=== PATIENT | female | born 1935 | race Caucasian/White ===

== ENCOUNTER 2018-08-19 06:01 | Emergency (ER) | payer OTHER ==
[2018-08-19 06:42] LABS: Absolute Monocytes 0.6 K/uL (0.1-1.3); Absolute Neutrophil 3.3 K/uL (1.8-8.0); Eosinophils % 7.2 % (0-4.4); Hematocrit 41.5 % (36.0-45.0); Lymphocytes % 31.3 % (15.3-44.8); MCH 30.3 pg (27.0-35.0); MCV 88.7 fL (80-100); MPV 9.4 fL (7.6-11.3); Monocytes % 8.8 % (3.3-12.3); RBC Red Blood Cell Count 4.68 M/uL (3.86-4.86)
[2018-08-19] MEDS ORDERED: HYDRALAZINE HCL 20 MG/ML VIAL ONE ×2 (06:47→08:57)
[2018-08-19 06:48] LABS: Potassium 4.6 mmol/L (3.5-5.1)
[2018-08-19 07:11] LABS: Protime INR 0.95
--- NOTE | 2018-08-19 07:26 | EDPHYS ---
Physician Documentation [facility] Name: Gaby Burnett Age: 82 yrs Sex: Female : 1935 Arrival Date: 08/19/2018 Time: 06:02 Bed 4 Private MD: ED Physician Juan Jose Tan HPI: 08/19 06:16 This 82 yrs old Female presents to ER via Wheelchair with complaints of S/S tw4 of Possible Stroke. 06:16 The patient's problem is reported as paresthesias, in right upper extremity, dysphasia, tw4 slurred speech. Onset: The symptoms/episode began/occurred just prior to arrival. Duration: This was a single incident. Context: symptoms became apparent upon waking. The symptoms are alleviated by nothing. The symptoms are aggravated by nothing. Associated signs and symptoms: The patient has no apparent associated signs or symptoms. Severity of symptoms: At their worst the symptoms were mild in the emergency department the symptoms are unchanged. Patient's baseline: Neuro: alert and fully oriented, Motor: no deficits. The patient has not experienced similar symptoms in the past. The patient has not recently seen a physician. Historical: - Allergies: 06:36 PENICILLINS; lp1 - Home Meds: 06:36 levothyroxine oral [Active]; lp1 - PMHx: 06:14 Hypertension; Hypothyroidism; tl2 - PSHx: 06:36 Cholecystectomy; Hysterectomy; tumor removal; Appendectomy; lp1 - Immunization history:: Adult Immunizations up to date. - Ebola Screening: : No symptoms or risks identified at this time. - Social history:: Smoking status: Patient/guardian denies using tobacco. ROS: 06:16 Constitutional: Negative for fever, chills, and weight loss, Cardiovascular: Negative tw4 for chest pain, palpitations, and edema, Respiratory: Negative for shortness of breath, cough, wheezing, and pleuritic chest pain, Abdomen/GI: Negative for abdominal pain, nausea, vomiting, diarrhea, and constipation, Back: Negative for injury and pain, MS/Extremity: Negative for injury and deformity, Skin: Negative for injury, rash, and discoloration. 06:16 Neuro: Positive for speech changes, weakness. Exam: 06:16 Constitutional: This is a well developed, well nourished patient who is awake, alert, tw4 and in no acute distress. Head/Face: Normocephalic, atraumatic. Chest/axilla: Normal chest wall appearance and motion. Nontender with no deformity. No lesions are appreciated. Cardiovascular: Regular rate and rhythm with a normal S1 and S2. No gallops, murmurs, or rubs. Normal PMI, no JVD. No pulse deficits. Respiratory: Lungs have equal breath sounds bilaterally, clear to auscultation and percussion. No rales, rhonchi or wheezes noted. No increased work of breathing, no retractions or nasal flaring. Abdomen/GI: Soft, non-tender, with normal bowel sounds. No distension or tympany. No guarding or rebound. No evidence of tenderness throughout. Back: No spinal tenderness. No costovertebral tenderness. Full range of motion. 06:32 Skin: Warm, dry with normal turgor. Normal color with no rashes, no lesions, and no tw4 evidence of cellulitis. MS/ Extremity: Pulses equal, no cyanosis. Neurovascular intact. Full, normal range of motion. Neuro: Awake and alert, GCS 15, oriented to person, place, time, and situation. Cranial nerves II-XII grossly intact. Motor strength 5/5 in all extremities. Sensory grossly intact. Cerebellar exam normal. Normal gait. 06:32 ECG was reviewed by the Attending Physician. 06:33 Radiologist reports: no acute changes. tw4 Vital Signs: 06:11 BP 215 / 83; Pulse 72; Resp 18; Temp 98.9(O); Pulse Ox 100% on R/A; Weight 77.11 kg; lp1 Height 5 ft. 5 in. (165.10 cm); Pain 0/10; 06:44 BP 205 / 83; Pulse 68; Resp 14; Pulse Ox 98% on R/A; lp1 07:04 BP 180 / 75; Pulse 75; Resp 20; Pulse Ox 97% on R/A; rr5 08:00 BP 186 / 87; Pulse 65; Resp 18; Pulse Ox 100% on R/A; sv 08:50 BP 210 / 82; Pulse 68; Resp 18; Pulse Ox 99% ; sv 06:11 Body Mass Index 28.29 (77.11 kg, 165.10 cm) lp1 NIH Stroke Scale Scores: 06:15 NIHSS Score: 0 lp1 06:16 NIHSS Score: 0 tw4 Sutton Coma Score: 06:16 Eye Response: spontaneous(4). Verbal Response: oriented(5). Motor Response: obeys tw4 commands(6). Total: 15. MDM: 06:08 Patient medically screened. tw4 06:16 Differential diagnosis: CVA, TIA, metabolic disorder, drug effects. Data reviewed: tw4 vital signs, nurses notes. Data interpreted: pharmacy cashier: rhythm is normal sinus rhythm, Pulse oximetry: Interpretation: normal. Counseling: I had a detailed discussion with the patient and/or guardian regarding: the historical points, exam findings, and any diagnostic results supporting the discharge/admit diagnosis. 07:26 ED course: The patient has responded well to BP medication (Hydralazine). Her s/s kdr continue to be minimal. On re-evaluation, her stroke scale continues to be 0/1. Family reports that she is at baseline in terms of speech and mental status. Her only c/o presently is mild paresthesia to her right upper extremity from the elbow down. Objectively, pinprick is felt appropriately in both upper and lower extremities. No current strength defecits. ED course: Dr. Harden/T accepted to [facility]. 08/19 06:07 Order name: Basic Metabolic Panel; Complete Time: 06:58 08/19 06:07 Order name: CBC with Diff; Complete Time: 06:58 08/19 06:07 Order name: Protime (+inr) 08/19 06:07 Order name: Ptt, Activated 08/19 06:07 Order name: CT Stroke Brain w/o Contrast 08/19 06:07 Order name: Stroke CXR 1 View 08/19 06:07 Order name: EKG; Complete Time: 06:07 08/19 06:07 Order name: Accucheck; Complete Time: 06:19 08/19 06:07 Order name: Cardiac monitoring; Complete Time: 06:39 08/19 06:07 Order name: EKG - Nurse/Tech; Complete Time: 06:39 08/19 06:07 Order name: IV Saline Lock; Complete Time: 06:40 08/19 06:07 Order name: Labs collected and sent; Complete Time: 06:40 08/19 06:07 Order name: NPO; Complete Time: 06:21 08/19 06:07 Order name: O2 Per Protocol; Complete Time: 06:21 08/19 06:07 Order name: O2 Sat Monitoring; Complete Time: 06:08/19 06:07 Order name: Stroke Swallow Screen; Complete Time: 06:40 bb EC:32 Rate is 69 beats/min. Rhythm is regular. QRS Alverda is Normal. IA interval is normal. QRS tw4 interval is normal. QT interval is normal. No Q waves. T waves are Inverted in leads V4, V5, V6. T waves are Flattened in lead III. No ST changes noted. Clinical impression: Abnormal EKG without significant change. Interpreted by me. Reviewed by me. Administered Medications: 06:47 Drug: hydrALAZINE 10 mg Route: IV; Rate: bolus; Site: left forearm; lp1 08:52 Drug: hydrALAZINE 10 mg Route: IV; Rate: calculated rate; Site: left forearm; sv 08:55 Follow up: Response: No adverse reaction; IV Status: Completed infusion; IV Intake: sv 0.5ml Point of Care Testing: Blood Glucose: 06:11 Blood Glucose: 97 mg/dL; lp1 Ranges: Critical Glucose Levels:Adult <50 mg/dl or >400 mg/dl <40 mg/dl or >180 mg/dl Disposition: 08/19/18 07:[address] [facility]. Diagnosis are Slurred speech, Right upper extremity weak/numbness. - Reason for transfer: Higher level of care. - Accepting physician is [facility]. - Condition is Fair. - Problem is new. - Symptoms have improved. NIH Stroke Scale - NIH Stroke Score Date: 08/19/2018 Time: 06:15 Total Score = 0 1a. Level of Consciousness (LOC) - 0(Alert) 1b. Level of Consciousness (LOC) (Year \T\ Age) - 0(Both) 1c. LOC Commands (Open \T\ Closes Eyes/Home Delivery Driver) - 0(Both) 2. Best Gaze (Lateral Gaze Paresis) - 0(Normal) 3. Visual Field Loss - 0(No visual loss) 4. Facial Palsy - 0(Normal) 5a. Left Arm: Motor (10-second hold) - 0(No drift) 5b. Right Arm: Motor (10-second hold) - 0(No drift) 6a. Left Leg: Motor (5-second hold - always test supine) - 0(No drift) 6b. Right Leg: Motor (5-second hold - always test supine) - 0(No drift) 7. Limb Ataxia (finger/nose \T\ heel/maravilla - test with eyes open) - 0(Absent) 8. Sensory Loss (pinprick arms/legs/face) - 0(Normal) 9. Best Language: Aphasia (description/naming/reading) - 0(No aphasia) 10. Dysarthria (speech clarity - read or repeat words) - 0(Normal) 11. Extinction and Inattention (visual/tactile/auditory/spatial/personal) - 0(No abnormality) Initials: lp1 NIH Stroke Scale - NIH Stroke Score Date: 08/19/2018 Time: 06:16 Total Score = 0 1a. Level of Consciousness (LOC) - 0(Alert) 1b. Level of Consciousness (LOC) (Year \T\ Age) - 0(Both) 1c. LOC Commands (Open \T\ Closes Eyes/Home Delivery Driver) - 0(Both) 2. Best Gaze (Lateral Gaze Paresis) - 0(Normal) 3. Visual Field Loss - 0(No visual loss) 4. Facial Palsy - 0(Normal) 5a. Left Arm: Motor (10-second hold) - 0(No drift) 5b. Right Arm: Motor (10-second hold) - 0(No drift) 6a. Left Leg: Motor (5-second hold - always test supine) - 0(No drift) 6b. Right Leg: Motor (5-second hold - always test supine) - 0(No drift) 7. Limb Ataxia (finger/nose \T\ heel/maravilla - test with eyes open) - 0(Absent) 8. Sensory Loss (pinprick arms/legs/face) - 0(Normal) 9. Best Language: Aphasia (description/naming/reading) - 0(No aphasia) 10. Dysarthria (speech clarity - read or repeat words) - 0(Normal) 11. Extinction and Inattention (visual/tactile/auditory/spatial/personal) - 0(No abnormality) Initials: tw4 Signatures: Dispatcher [employer] EDYnes Reyna RN RN Juan Jose Santos MD MD kdr Reba Hansen RN RN bb Ynes Bates RN RN lp1 Gail Zeng RN RN tl2 Marek Marlow, MD SINGLETARY tw4 Corrections: (The following items were deleted from the chart) 08:55 07:25 08/19/2018 07:[address] [facility]. sv Diagnosis is Slurred speech; Right upper extremity weak/numbness. Reason for transfer: Higher level of care. Accepting physician is [facility]. Condition is Fair. Problem is new. Symptoms have improved. kdr
--- NOTE | 2018-08-19 07:26 | ER ---
Nurse's Notes [facility] Name: Gaby Burnett Age: 82 yrs Sex: Female : 1935 Arrival Date: 08/19/2018 Time: 06:02 Bed 4 Private MD: Diagnosis: Slurred speech;Right upper extremity weak/numbness Presentation: 08/19 06:11 Presenting complaint: Patient states: "I woke up about 5:00 this morning and my left tl2 arm felt numb and my family said my speech was slurred. I feel like something is definitely wrong." Family states her last known normal was yesterday at 3:00 pm. Pt AOx4. Reports pain in the back of her head. Transition of care: patient was not received from another setting of care. Onset of symptoms was August 19, 2018 at 05:00. Risk Assessment: Do you want to hurt yourself or someone else? Patient reports no desire to harm self or others. Initial Sepsis Screen: Does the patient meet any 2 criteria? No. Patient's initial sepsis screen is negative. Does the patient have a suspected source of infection? No. Patient's initial sepsis screen is negative. Care prior to arrival: None. 06:11 Method Of Arrival: Wheelchair tl2 06:11 Acuity: RYANNE 2 tl2 06:20 No acute neurological deficit is noted. Pre-hospital glucose is not applicable to this tl2 patient. Triage Assessment: 06:14 The onset of the patients symptoms was at an unknown time. tl2 06:38 The onset of the patients symptoms was at an unknown time. lp1 Stroke Activation: Physician: Stroke Attending; Name: ; Notified At: ; Arrived At: Physician: Chief Stroke Resident; Name: ; Notified At: ; Arrived At: Physician: Stroke Resident; Name: ; Notified At: ; Arrived At: Physician: ED Attending; Name: Ele; Notified At: 06:09; Arrived At: 06:09 Physician: ED Resident; Name: ; Notified At: ; Arrived At: Historical: - Allergies: 06:36 PENICILLINS; lp1 - Home Meds: 06:36 levothyroxine oral [Active]; lp1 - PMHx: 06:14 Hypertension; Hypothyroidism; tl2 - PSHx: 06:36 Cholecystectomy; Hysterectomy; tumor removal; Appendectomy; lp1 - Immunization history:: Adult Immunizations up to date. - Ebola Screening: : No symptoms or risks identified at this time. - Social history:: Smoking status: Patient/guardian denies using tobacco. Screenin:15 Abuse screen: Denies threats or abuse. Nutritional screening: No deficits noted. tl2 Tuberculosis screening: No symptoms or risk factors identified. Fall Risk Gait- Impaired (20 pts.). Assessment: 06:28 Patient has been NPO before screening. The patient is alert, and able to follow lp1 commands. The patient does not exhibit slurred or garbled speech. The patient is not exhibiting difficulty speaking. The patient does not exhibit difficulty understanding words. The patient is able to swallow own secretions with no drooling or need for suction. Patient tolerated one teaspoon of water. No drooling, immediate coughing, gurgling, or clearing of the throat was noted. The patient tolerated 90mL of water. No drooling, immediate coughing, gurgling, or clearing of the throat was noted. The patient passed the bedside swallow screening. Oral medications may be given as ordered. Contact Physician for further diet orders. Provider notified of bedside swallow screening results: Marek Marlow MD. 06:30 T-PA (Activase) Screening: Contraindications: Patient reports onset of signs and lp1 symptoms of stroke greater than 6 hours ago: Yes. 06:39 General: Appears in no apparent distress. Behavior is anxious. Pain: Denies pain. lp1 Neuro: Level of Consciousness is awake, alert, obeys commands, Oriented to person, place, situation, Outboard Motor Assembler are equal bilaterally Moves all extremities. Full function Gait is steady, Speech is normal, Facial symmetry appears normal, Pupils are PERRLA, Intact Reports weakness to right arm and bilateral legs that has resolved. Cardiovascular: Patient's skin is warm and dry. Respiratory: Respiratory effort is even, unlabored, Breath sounds are clear bilaterally. GI: No signs and/or symptoms were reported involving the gastrointestinal system. : No signs and/or symptoms were reported regarding the genitourinary system. EENT: No signs and/or symptoms were reported regarding the EENT system. Derm: Skin is thin, Skin is dry, Skin is normal. Musculoskeletal: Circulation, motion, and sensation intact. 07:10 General: Appears in no apparent distress. comfortable, well developed, Behavior is sv calm, cooperative, appropriate for age. Pain: Denies pain. Neuro: Level of Consciousness is awake, alert, obeys commands, Oriented to person, place, time, situation, Outboard Motor Assembler are equal bilaterally Moves all extremities. Speech pt reports "some slurred speech but it has definitely gotten better since I got here." Son reports that her speech has improved as well.. Reports numbness in dorsal aspect of right forearm, right wrist and right hand since "a little while ago". Cardiovascular: Patient's skin is warm and dry. Rhythm is sinus arrythmia. Cardiovascular: Pulses are 3+ in right radial artery and left radial artery. Respiratory: Airway is patent Respiratory effort is even, unlabored, Respiratory pattern is regular, symmetrical. Derm: Skin is intact, is thin, Skin is pink, warm \\T\\ dry. Musculoskeletal: Range of motion: intact in all extremities. 07:12 Reassessment: Informed Dr Tan of pt's numbness to the right lower arm. sv 08:33 Reassessment: Patient appears in no apparent distress at this time. No changes from sv previously documented assessment. Patient and/or family updated on plan of care and expected duration. Pain level reassessed. Patient is alert, oriented x 3, equal unlabored respirations, skin warm/dry/pink. 08:50 Reassessment: Patient appears in no apparent distress at this time. No changes from sv previously documented assessment. Patient and/or family updated on plan of care and expected duration. Pain level reassessed. Patient is alert, oriented x 3, equal unlabored respirations, skin warm/dry/pink. Vital Signs: 06:11 BP 215 / 83; Pulse 72; Resp 18; Temp 98.9(O); Pulse Ox 100% on R/A; Weight 77.11 kg; lp1 Height 5 ft. 5 in. (165.10 cm); Pain 0/10; 06:44 BP 205 / 83; Pulse 68; Resp 14; Pulse Ox 98% on R/A; lp1 07:04 BP 180 / 75; Pulse 75; Resp 20; Pulse Ox 97% on R/A; rr5 08:00 BP 186 / 87; Pulse 65; Resp 18; Pulse Ox 100% on R/A; sv 08:50 BP 210 / 82; Pulse 68; Resp 18; Pulse Ox 99% ; sv 06:11 Body Mass Index 28.29 (77.11 kg, 165.10 cm) lp1 Ivette Coma Score: 06:16 Eye Response: spontaneous(4). Verbal Response: oriented(5). Motor Response: obeys tw4 commands(6). Total: 15. NIH Stroke Scale Scores: 06:15 NIHSS Score: 0 lp1 06:16 NIHSS Score: 0 tw4 ED Course: 06:02 Patient arrived in ED. ds1 06:08 Marek Marlow MD is Attending Physician. tw4 06:14 Triage completed. tl2 06:14 Arm band placed on right wrist. tl2 06:15 Patient has correct armband on for positive identification. Bed in low position. Call tl2 light in reach. Side rails up X2. Adult w/ patient. 06:17 CT Stroke Brain w/o Contrast In Process Unspecified. EDMS 06:23 X-ray completed. Portable x-ray completed in exam room. Patient tolerated procedure kw well. 06:23 Stroke CXR 1 View In Process Unspecified. EDMS 06:23 Inserted saline lock: 20 gauge in left forearm, using aseptic technique. Blood tl2 collected. placed by JILLIAN Welsh. 06:30 EKG done, by ED staff, reviewed by Marek Marlow MD. lp1 06:41 Ynes Bates RN is Primary Nurse. lp1 06:43 Attending Physician role handed off by Marek Marlow MD kdr 06:43 Juan Jose Tan MD is Attending Physician. kdr 07:07 Primary Nurse role handed off by Ynes Bates RN sv 07:07 Ynes Calero RN is Primary Nurse. sv 07:07 Report received from Ynes WALSH. sv 08:34 No provider procedures requiring assistance completed. Patient transferred, IV remains sv in place. intact. Administered Medications: 06:47 Drug: hydrALAZINE 10 mg Route: IV; Rate: bolus; Site: left forearm; lp1 08:52 Drug: hydrALAZINE 10 mg Route: IV; Rate: calculated rate; Site: left forearm; sv 08:55 Follow up: Response: No adverse reaction; IV Status: Completed infusion; IV Intake: sv 0.5ml Point of Care Testing: Blood Glucose: 06:11 Blood Glucose: 97 mg/dL; lp1 Ranges: Intake: 08:55 IV: 1ml; Total: 1ml. sv Outcome: 07:25 ER care complete, transfer ordered by . kdr 08:50 Transferred by [facility] to [facility], Transfer form completed. sv Note: Report given to Tanisha from EMS. 08:50 Condition: stable 08:50 Instructed on the need for transfer. 08:55 Patient left the ED. sv NIH Stroke Scale - NIH Stroke Score Date: 08/19/2018 Time: 06:15 Total Score = 0 1a. Level of Consciousness (LOC) - 0(Alert) 1b. Level of Consciousness (LOC) (Year \\T\\ Age) - 0(Both) 1c. LOC Commands (Open \\T\\ Closes Eyes/Store Protection Specialist) - 0(Both) 2. Best Gaze (Lateral Gaze Paresis) - 0(Normal) 3. Visual Field Loss - 0(No visual loss) 4. Facial Palsy - 0(Normal) 5a. Left Arm: Motor (10-second hold) - 0(No drift) 5b. Right Arm: Motor (10-second hold) - 0(No drift) 6a. Left Leg: Motor (5-second hold - always test supine) - 0(No drift) 6b. Right Leg: Motor (5-second hold - always test supine) - 0(No drift) 7. Limb Ataxia (finger/nose \\T\\ heel/maravilla - test with eyes open) - 0(Absent) 8. Sensory Loss (pinprick arms/legs/face) - 0(Normal) 9. Best Language: Aphasia (description/naming/reading) - 0(No aphasia) 10. Dysarthria (speech clarity - read or repeat words) - 0(Normal) 11. Extinction and Inattention (visual/tactile/auditory/spatial/personal) - 0(No abnormality) Initials: lp1 NIH Stroke Scale - NIH Stroke Score Date: 08/19/2018 Time: 06:16 Total Score = 0 1a. Level of Consciousness (LOC) - 0(Alert) 1b. Level of Consciousness (LOC) (Year \\T\\ Age) - 0(Both) 1c. LOC Commands (Open \\T\\ Closes Eyes/Store Protection Specialist) - 0(Both) 2. Best Gaze (Lateral Gaze Paresis) - 0(Normal) 3. Visual Field Loss - 0(No visual loss) 4. Facial Palsy - 0(Normal) 5a. Left Arm: Motor (10-second hold) - 0(No drift) 5b. Right Arm: Motor (10-second hold) - 0(No drift) 6a. Left Leg: Motor (5-second hold - always test supine) - 0(No drift) 6b. Right Leg: Motor (5-second hold - always test supine) - 0(No drift) 7. Limb Ataxia (finger/nose \\T\\ heel/maravilla - test with eyes open) - 0(Absent) 8. Sensory Loss (pinprick arms/legs/face) - 0(Normal) 9. Best Language: Aphasia (description/naming/reading) - 0(No aphasia) 10. Dysarthria (speech clarity - read or repeat words) - 0(Normal) 11. Extinction and Inattention (visual/tactile/auditory/spatial/personal) - 0(No abnormality) Initials: tw4 Signatures: Dispatcher [employer] Ynes Valdez RN Juan Jose Vega MD MD kdr Sanford, Demi ds1 Peyton Belle Laura, RN RN lp1 Gail Zeng RN RN tl2 Marek Marlow MD MD tw4 Blaise Albarado RN RN rr5 Corrections: (The following items were deleted from the chart) 06:20 06:19 Blood Glucose: Blood Glucose Reading=97 mg/dL. tl2 tl2 06:35 06:11 Pulse 72bpm; Resp 18bpm; Pulse Ox 100% RA; Temp 98.9F Oral; lp1 lp1 10:27 08:50 Transferred by ground EMS Transfer form completed. Note: Report given to diamante Garay from EMS. diamante
--- NOTE | 2018-08-19 08:14 | RAD REPORT ---
EXAM DESCRIPTION: [facility]ita Single View08/19/2018 6:25 am CLINICAL HISTORY: Hypertension/slurred speech COMPARISON: none FINDINGS: The lungs appear clear of acute infiltrate. The heart is normal size IMPRESSION: No acute abnormalities displayed
--- NOTE | 2018-08-19 08:23 | RAD REPORT ---
EXAM DESCRIPTION: CT - Ct Stroke Brain Wo Cont - 08/19/2018 6:37 am CLINICAL HISTORY: Slurred speech COMPARISON: None. TECHNIQUE: Computed axial tomography of the head was obtained. IV contrast was not requested.Jonny aponte report was generated by [email or web address] and was reviewed prior to dictation All CT scans are performed using dose optimization technique as appropriate and may include automated exposure control or mA/KV adjustment according to patient size. FINDINGS: An intracranial bleed is not seen . The ventricles are normal in caliber. No extra-axial fluid collection is noted. Mild to moderate low-density within periventricular, deep a nd subcortical white matter may represent ischemic changes secondary to small vessel disease Fluid within the sinuses/ mastoids is not seen. IMPRESSION: No acute intracranial abnormality is seen. If patient's symptoms persist MRI of the bra in would be recommended.
--- NOTE | 2018-08-19 08:25 | EKG ---
Test Date: 2018-08-19 Test Time: 06:30:19 Cycle Manager: MICHELET MEASUREMENT RESULTS: Intervals: Rate: 69 SD: 164 QRSD: 78 QT: 414 QTc: 443 [place]: P: 46 SD: 164 QRS: 20 T: 111 INTERPRETIVE STATEMENTS: Sinus rhythm with premature atrial complexes Nonspecific T wave abnormality Abnormal ECG Compared to ECG 07/28/2005 04:11:00 Atrial premature complex(es) now present T-wave abnormality now present Sinus bradycardia no longer present Electronically Signed On 08-19-18 08:25:02 CDT by Winston Thompson
== END 2018-08-19 08:55 | disposition short-term general hospital (02) ==
LOC: ER 06:01
DX: R53.1 Weakness (principal); I10 Essential (primary) hypertension; E03.9 Hypothyroidism, unspecified; Z88.0 Allergy status to penicillin
CPT/HCPCS: 36415; 70450; 71045; 80048; 82962; 85025; 85610; 85730; 93005; 96374; 99285; J0360 ×2

== ENCOUNTER 2019-10-07 14:16 | Inpatient (IN) | payer OTHER ==
--- OUTSIDE RECORDS SUMMARY | 2019-10-07 14:19 | XMS REPORT ---
:1935 Author Organization [facility] Address [address] [place] [address] Dr. Turk [address] [place] [id number] Care Team Providers Name Role Phone ESTHELA FALCON Unavailable Unavailable Problems This patient has no known problems. Allergies, Adverse Reactions, Alerts This patient has no known allergies or adverse reactions. Medications This patient has no known medications. Results Test Description Test Time Test Comments Text Results Atomic Results Result Comments RPR 2018-08-23 03:27:00 Test Item Value Reference Range Comments RPR SCREEN (BEAKER) (test jubf=045) Nonreactive Nonreactive T4, [id number] 07:55:00 Test Item Value Reference Range Comments FREE T4 (BEAKER) (test ohcx=806) 1.00 ng/dL 0.70-1.48 TSH/FREE T4 IF [id number] 06:54:00 Test Item Value Reference Range Comments THYROID STIMULATING HORMONE (BEAKER) (test 6.27 uIU/mL 0.35-4.94 tzdk=851) VITAMIN B12 AND [id number] 06:31:00 Test Item Value Reference Range Comments VITAMIN B12 (BEAKER) (test brlw=611) 210 pg/mL 213-816 FOLATE (BEAKER) (test xhbq=573) 13.9 ng/mL >=7.0 LIPID [id number] 05:58:00 Test Item Value Reference Range Comments TRIGLYCERIDES (BEAKER) (test airq=052) 152 mg/dL CHOLESTEROL (BEAKER) (test oftr=264) 224 mg/dL HDL CHOLESTEROL (BEAKER) (test cmvu=952) 36 mg/dL LDL CHOLESTEROL CALCULATED (BEAKER) (test 158 mg/dL ecxz=451) Triglyceride Reference Range: Low Risk <150 Borderline 150- 199 High Risk 200-499 Very High Risk >=500Cholesterol Reference Range: Low Risk <200 Borderline 200-239 High Risk > 240HDL Cholesterol Reference Range: Low Risk >=60 High Risk <40LDL Cholesterol Reference Range: Optimal <100 Near Optimal 100-129 Borderline 130-159 High 160-189 Very High >=190 FastingBASIC METABOLIC [id number] 05:58:00 Test Item Value Reference Range Comments SODIUM (BEAKER) (test 139 meq/L 136-145 qbhv=608) POTASSIUM (BEAKER) (test 3.7 meq/L 3.5-5.1 cget=832) CHLORIDE (BEAKER) (test 107 meq/L 98-107 xlfi=571) CO2 (BEAKER) (test 22 meq/L 22-29 cgjp=239) BLOOD UREA NITROGEN 21 mg/dL 7-21 (BEAKER) (test etkr=578) CREATININE (BEAKER) (test 0.77 mg/dL 0.57-1.25 rzes=621) GLUCOSE RANDOM (BEAKER) 147 mg/dL 70-105 (test cbrb=991) CALCIUM (BEAKER) (test 9.9 mg/dL 8.4-10.2 armr=891) EGFR (BEAKER) (test 72 mL/min/1.73 sq m ESTIMATED GFR IS NOT zwae=8529) ACCURATE CREATININE CLEARANCE IN PREDICTING GLOMERULAR FILTRATION RATE. ESTIMATED GFR IS NOT APPLICABLE FOR DIALYSIS PATIENTS. FastingCBC W/PLT COUNT & AUTO [id number] 05:31:00 Test Item Value Reference Range Comments WHITE BLOOD CELL COUNT (BEAKER) (test yzqw=871) 8.4 K/ L 3.5-10.5 RED BLOOD CELL COUNT (BEAKER) (test vhne=075) 4.64 M/ L 3.93-5.22 HEMOGLOBIN (BEAKER) (test cozp=223) 13.5 GM/DL 11.2-15.7 HEMATOCRIT (BEAKER) (test frdo=202) 41.3 % 34.1-44.9 MEAN CORPUSCULAR VOLUME (BEAKER) (test vwif=990) 89.0 fL 79.4-94.8 MEAN CORPUSCULAR HEMOGLOBIN (BEAKER) (test 29.1 pg 25.6-32.2 bgcn=528) MEAN CORPUSCULAR HEMOGLOBIN CONC (BEAKER) (test 32.7 GM/DL 32.2-35.5 cnrt=850) RED CELL DISTRIBUTION WIDTH (BEAKER) (test 13.7 % 11.7-14.4 asjt=355) PLATELET COUNT (BEAKER) (test kzni=309) 222 K/CU MM 150-450 MEAN PLATELET VOLUME (BEAKER) (test tumq=671) 10.9 fL 9.4-12.3 NUCLEATED RED BLOOD CELLS (BEAKER) (test 0 /100 WBC 0-0 zris=259) NEUTROPHILS RELATIVE PERCENT (BEAKER) (test 72 % thew=836) LYMPHOCYTES RELATIVE PERCENT (BEAKER) (test 17 % tdhf=176) MONOCYTES RELATIVE PERCENT (BEAKER) (test 8 % pxcz=444) EOSINOPHILS RELATIVE PERCENT (BEAKER) (test 3 % vcyp=692) BASOPHILS RELATIVE PERCENT (BEAKER) (test 1 % wqgd=848) NEUTROPHILS ABSOLUTE COUNT (BEAKER) (test 6.00 K/ L 1.56-6.13 wecw=713) LYMPHOCYTES ABSOLUTE COUNT (BEAKER) (test 1.40 K/ L 1.18-3.74 msuu=162) MONOCYTES ABSOLUTE COUNT (BEAKER) (test 0.64 K/ L 0.24-0.36 papd=906) EOSINOPHILS ABSOLUTE COUNT (BEAKER) (test 0.23 K/ L 0.04-0.36 hxtc=963) BASOPHILS ABSOLUTE COUNT (BEAKER) (test 0.04 K/ L 0.01-0.08 okqh=009) IMMATURE GRANULOCYTES-RELATIVE PERCENT (BEAKER) 1 % 0-1 (test fqid=2841) MR, BRAIN, WITHOUT [id number] 23:12:00Reason for exam:->StrokeWhat is the patient's sedation requirement?->No SedationIs the patientclaustrophobic?->NoFINAL REPORT Exam: MRI brain without contrast. Comparison: None. Clinical indication: Stroke. Right side weakness Technique: Multiplanar multi sequential MR imaging of the brainwas performed without the administration of intravenous contrast. Findings : There are ypro-xm-crbjvtkq white matter microvascular ischemic changes. There are foci of restricted diffusion in the left frontoparietal region involving the precentral and postcentral gyri consistent with acute infarcts. There is no abnormality on susceptibility sequences to suggest hemorrhage or hemosiderin deposition. There is generalized parenchymal atrophy. There is no intracranial mass, mass effect, extra-axial collection, hydrocephalus or herniation. The skull base flow-voids are seen in keeping with their patency. The visualized paranasal sinuses and mastoid air cells are clear. There are bilateral lens replacements. The sella and parasellar regions are unremarkable. The craniocervical junction is normal.Impression:Small acute left frontoparietal infarcts. Igvo-fo-tbpkefyn white matter microvascular ischemic changes. No acute intracranial hemorrhage or mass effect. Findings discussed with Dr Gutierrez [id number]/. Signed: Anne Ignacio Verified Date/Time: 08/19/2018 23:12:35 Reading Location: [address] Body Reading Room 11:12 PMMR, MRA , NECK, WITHOUT IV [id number] 22:59:00FINAL REPORT MRA head and neck without contrast. CLINICAL HISTORY: Stroke. Right- sided weakness. COMPARISON: None. TECHNIQUE: Two- and three-dimensional time-of- flight MRA images of the intra- and extracranial carotid and vertebral arterial circulations were obtained, from which maximal intensity projection 3-D reconstructions were created. FINDINGS: MRA neck: There is mild stenosis of the proximal right cervical internal carotid artery (approximately 34%). There is mild short segment stenosis of the proximal left cervical carotid artery ( approximately 37%). There is no vessel occlusion in the extracranial carotid or vertebral arterial circulations. Flow is antegrade in both vertebral arteries. MRA [place]: There is irregularity of the intracranial vasculature in keeping with atherosclerosis. There is a right [employer]. There is no vessel occlusion, flow-limitingstenosis, or aneurysm in the intracranial carotid or vertebrobasilar arterial circulations. IMPRESSION: MRA neck: Mild stenosis of the bilateral cervical internal ICAs. No hemodynamically significant stenosis by NASCET criteria.MRA head: No vessel occlusion or flow-limiting stenosis. Signed: Anne Ignacio Verified Date/Time: 08/19/2018 22:59:51 Reading Location: [address] Body Reading Room MR, MRA, BRAIN, WITHOUT [id number] 22:59:00Reason for exam:->StrokeWhat is the patient's sedation requirement ?->No SedationIs the patientclaustrophobic?->NoFINAL REPORT MRA head and neck without contrast. CLINICAL HISTORY: Stroke. Right- sided weakness. COMPARISON: None. TECHNIQUE: Two- and three-dimensional time-of- flight MRA images of the intra- and extracranial carotid and vertebral arterial circulations were obtained, from which maximal intensity projection 3-D reconstructions were created. FINDINGS: MRA neck: There is mild stenosis of the proximal right cervical internal carotid artery (approximately 34%). There is mild short segment stenosis of the proximal left cervical carotid artery ( approximately 37%). There is no vessel occlusion in the extracranial carotid or vertebral arterial circulations. Flow is antegrade in both vertebral arteries. MRA [place]: There is irregularity of the intracranial vasculature in keeping with atherosclerosis. There is a right [employer]. There is no vessel occlusion, flow-limitingstenosis, or aneurysm in the intracranial carotid or vertebrobasilar arterial circulations. IMPRESSION: MRA neck: Mild stenosis of the bilateral cervical internal ICAs. No hemodynamically significant stenosis by NASCET criteria.MRA head: No vessel occlusion or flow-limiting stenosis. Signed: Anne Ignacio MDReport Verified Date/Time: 08/19/2018 22:59:51 Reading Location: [address] Body Reading Room HEMOGLOBIN [id number] 15:02:00 Test Item Value Reference Range Comments HEMOGLOBIN A1C (BEAKER) (test dupa=285) 5.7 % 4.3-6.1 BASIC METABOLIC [id number] 12:44:00 Test Item Value Reference Range Comments SODIUM (BEAKER) (test 141 meq/L 136-145 acdh=028) POTASSIUM (BEAKER) (test 4.5 meq/L 3.5-5.1 eahd=083) CHLORIDE (BEAKER) (test 106 meq/L 98-107 wknt=435) CO2 (BEAKER) (test 24 meq/L 22-29 xica=385) BLOOD UREA NITROGEN 15 mg/dL 7-21 (BEAKER) (test xkxd=190) CREATININE (BEAKER) (test 0.79 mg/dL 0.57-1.25 ccyu=159) GLUCOSE RANDOM (BEAKER) 99 mg/dL 70-105 (test ccrb=179) CALCIUM (BEAKER) (test 9.7 mg/dL 8.4-10.2 evyz=802) EGFR (BEAKER) (test 70 mL/min/1.73 sq m ESTIMATED GFR IS NOT mwpd=2236) ACCURATE CREATININE CLEARANCE IN PREDICTING GLOMERULAR FILTRATION RATE. ESTIMATED GFR IS NOT APPLICABLE FOR DIALYSIS PATIENTS. C-REACTIVE [id number] 12:44:00 Test Item Value Reference Range Comments C-REACTIVE PROTEIN (BEAKER) (test mhuq=389) 0.23 mg/dL 0.00-0.50 CBC W/PLT COUNT & AUTO [id number] 12:24:00 Test Item Value Reference Range Comments WHITE BLOOD CELL COUNT (BEAKER) (test lgvu=404) 8.1 K/ L 3.5-10.5 RED BLOOD CELL COUNT (BEAKER) (test cedk=401) 5.04 M/ L 3.93-5.22 HEMOGLOBIN (BEAKER) (test dzqw=864) 14.7 GM/DL 11.2-15.7 HEMATOCRIT (BEAKER) (test xxth=428) 46.0 % 34.1-44.9 MEAN CORPUSCULAR VOLUME (BEAKER) (test beqo=189) 91.3 fL 79.4-94.8 MEAN CORPUSCULAR HEMOGLOBIN (BEAKER) (test 29.2 pg 25.6-32.2 uxyf=991) MEAN CORPUSCULAR HEMOGLOBIN CONC (BEAKER) (test 32.0 GM/DL 32.2-35.5 qipo=582) RED CELL DISTRIBUTION WIDTH (BEAKER) (test 13.7 % 11.7-14.4 phzl=570) PLATELET COUNT (BEAKER) (test kkko=375) 234 K/CU MM 150-450 MEAN PLATELET VOLUME (BEAKER) (test kejo=788) 11.3 fL 9.4-12.3 NUCLEATED RED BLOOD CELLS (BEAKER) (test 0 /100 WBC 0-0 zlhi=039) NEUTROPHILS RELATIVE PERCENT (BEAKER) (test 67 % mlrb=544) LYMPHOCYTES RELATIVE PERCENT (BEAKER) (test 19 % meee=391) MONOCYTES RELATIVE PERCENT (BEAKER) (test 8 % ltyy=474) EOSINOPHILS RELATIVE PERCENT (BEAKER) (test 5 % ygon=828) BASOPHILS RELATIVE PERCENT (BEAKER) (test 1 % jtvo=077) NEUTROPHILS ABSOLUTE COUNT (BEAKER) (test 5.42 K/ L 1.56-6.13 dcmf=867) LYMPHOCYTES ABSOLUTE COUNT (BEAKER) (test 1.52 K/ L 1.18-3.74 yafj=388) MONOCYTES ABSOLUTE COUNT (BEAKER) (test 0.66 K/ L 0.24-0.36 wwhq=066) EOSINOPHILS ABSOLUTE COUNT (BEAKER) (test 0.39 K/ L 0.04-0.36 ycgt=949) BASOPHILS ABSOLUTE COUNT (BEAKER) (test 0.05 K/ L 0.01-0.08 rhxh=431) IMMATURE GRANULOCYTES-RELATIVE PERCENT (BEAKER) 1 % 0-1 (test zwkq=4219)
--- NOTE | 2019-10-07 14:55 | RAD REPORT ---
EXAM DESCRIPTION: CT - Ct Stroke Brain Wo Cont - 10/07/2019 2:47 pm CLINICAL HISTORY: facial droop;Slurred speech CVA symptomology COMPARISON: Ct Stroke Brain Wo Cont dated 08/19/2018; Chest Single View dated 08/19/2018 TECHNIQUE: All CT scans are performed using dose optimization technique as appropriate and may inclu de automated exposure control or mA/KV adjustment according to patient size. FINDINGS: No intracranial hemorrhage, hydrocephalus or extra-axial fluid collection.Mild generalized brain atrophy is present with mild periventricular and deep white matter chronic microvascular ische rk changes.No areas of brain edema or evidence of midline shift. The paranasal sinuses and mastoids are clear. The calvarium is intact. IMPRESSION: No acute intracranial abnormality. If there is continued clinical concern for CVA, MR i maging of the brain would be recommended. The findings were discussed with Dr. Tan on 10/07/2019 at 2:52 p.m. by telephone.
--- NOTE | 2019-10-07 15:12 | RAD REPORT ---
EXAM DESCRIPTION: [place] Single View10/07/2019 2:56 pm CLINICAL HISTORY: Hypertension and slurred speech COMPARISON: 2018 FINDINGS: The lungs appear clear of acute infiltrate. The heart is normal size IMPRESSION: No acute abnormalities displayed
[2019-10-07] MEDS ORDERED: ASPIRIN 325 MG TAB ONE (15:21)
[2019-10-07 15:24] LABS: Absolute Lymphocytes (CBC) 2.5 K/uL (0.7-4.9); Basophils % 0.6 % (0-1.3); Hematocrit 41.8 % (36.0-45.0); MPV 10.1 fL (7.6-11.3); RBC Red Blood Cell Count 4.71 M/uL (3.86-4.86)
[2019-10-07 15:39] LABS: Protime INR 0.96
[2019-10-07 15:41] LABS: Potassium 3.8 mmol/L (3.5-5.1)
[2019-10-07] MEDS ORDERED: LORazepam 2 MG/ML VIAL ONE ×2 (17:14→17:39)
--- NOTE | 2019-10-07 19:08 | RAD REPORT ---
EXAM DESCRIPTION: CTHead angio10/07/2019 6:51 pm CLINICAL HISTORY: aphasia COMPARISON: None TECHNIQUE: CT angiogram of the head was obtained. 3D MIPS reconstruction performed. All CT scans are performed using dose optimization technique as appropriate and may include automated exposure control or mA/KV adjustment according to patient size. FINDINGS: origin of the right posterior cerebral artery The basilar, internal carotid, anterior cerebral, middle cerebral and posterior cerebral arteries are normal caliber. An aneurysm is not seen. A significant stenosis is not noted. IMPRESSION: No significant abnormalities displayed.
--- NOTE | 2019-10-07 21:05 | ER ---
Nurse's Notes [facility] Name: Gaby Burnett Age: 83 yrs Sex: Female : 1935 Arrival Date: 10/07/2019 Time: 14:18 Bed 13 Private MD: Amador Lopez Diagnosis: Aphasia following cerebral infarction Presentation: 10/07 14:18 Presenting complaint: Patient states: i got up at 4 :30 am this morning to go to the 2 bathroom, i had an upset stomach, and then i noticed the drooping of my right side of my face, and i have weakness in my RIGHT arm. Transition of care: patient was not received from another setting of care. Onset of symptoms was October 07, 2019. Risk Assessment: Do you want to hurt yourself or someone else? Patient reports no desire to harm self or others. Initial Sepsis Screen: Does the patient meet any 2 criteria? No. Patient's initial sepsis screen is negative. Does the patient have a suspected source of infection? No. Patient's initial sepsis screen is negative. Care prior to arrival: None. 14:18 Method Of Arrival: Wheelchair tw2 14:18 Acuity: RYANNE 2 tw2 Triage Assessment: 14:20 General: Appears in no apparent distress. well groomed, Behavior is calm, cooperative, tw2 appropriate for age. Pain: Complains of pain in right hip, chronic. 19:10 The onset of the patients symptoms was October 07, 2019 at 04:30. jb4 Historical: - Allergies: 14:21 PENICILLINS; tw2 - Home Meds: 14:21 levothyroxine oral [Active]; high blood pressure medicine [Active]; tw2 - PMHx: 14:21 Hypertension; Hypothyroidism; tw2 - PSHx: 14:21 Cholecystectomy; Hysterectomy; tumor removal; Appendectomy; tw2 - Immunization history:: Adult Immunizations. - Social history:: Smoking status: . - Ebola Screening: : Patient negative for fever greater than or equal to 101.5 degrees Fahrenheit, and additional compatible Ebola Virus Disease symptoms. Screenin:11 Abuse screen: Denies threats or abuse. Denies injuries from another. Nutritional bp screening: No deficits noted. Tuberculosis screening: No symptoms or risk factors identified. Fall Risk None identified. Assessment: 14:26 Reassessment: Dr. Tan notified of pt and CT ordered. tw2 15:12 VAN Scoring: Arm Drift: Patients demonstrates NO arm weakness. Patient is VAN Negative. bp Visual Disturbance: No visual disturbance noted. Aphasia: No aphasia noted. Neglect: No neglect noted. Patient has been NPO before screening. The patient is alert, and able to follow commands. The patient does not exhibit slurred or garbled speech. The patient is not exhibiting difficulty speaking. The patient does not exhibit difficulty understanding words. The patient is able to swallow own secretions with no drooling or need for suction. Patient tolerated one teaspoon of water. No drooling, immediate coughing, gurgling, or clearing of the throat was noted. The patient tolerated 90mL of water. No drooling, immediate coughing, gurgling, or clearing of the throat was noted. The patient passed the bedside swallow screening. Oral medications may be given as ordered. Contact Physician for further diet orders. Provider notified of bedside swallow screening results: Juan Jose Tan MD. T-PA (Activase) Screening: Contraindications: Patient reports onset of signs and symptoms of stroke greater than 6 hours ago: Yes. 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 15:46 Reassessment: NEURO STATUS AT BASELINE. RESULTS PENDING. bp 17:43 Reassessment: PT REFUSED MRI AND INSISTED ON RETURNING TO ROOM. MD NOTIFIED AND PT bp MEDICATED FOR ANXIETY. 18:42 Reassessment: PT TO CTA, RESULTS PENDING FOR DISPO VS ADMIT. bp 19:10 Reassessment: Patient appears in no apparent distress at this time. Patient and/or jb4 family updated on plan of care and expected duration. Pain level reassessed. Patient is alert, oriented x 3, equal unlabored respirations, skin warm/dry/pink. General: Appears in no apparent distress. comfortable, Behavior is calm, cooperative, appropriate for age. Pain: Denies pain. Cardiovascular: Patient's skin is warm and dry. Respiratory: Airway is patent Respiratory effort is even, unlabored, Respiratory pattern is regular, symmetrical. GI: No signs and/or symptoms were reported involving the gastrointestinal system. : No signs and/or symptoms were reported regarding the genitourinary system. EENT: No signs and/or symptoms were reported regarding the EENT system. Derm: Skin is intact, Skin is pink, warm \T\ dry. Musculoskeletal: Circulation, motion, and sensation intact. Range of motion: intact in all extremities. 19:10 Neuro: Level of Consciousness is awake, alert, obeys commands, Oriented to person, jb4 place, time, situation, Speech is slurred, Facial droop on right. 20:00 Reassessment: Patient appears in no apparent distress at this time. Patient and/or jb4 family updated on plan of care and expected duration. Pain level reassessed. Patient is alert, oriented x 3, equal unlabored respirations, skin warm/dry/pink. 20:58 Reassessment: Patient appears in no apparent distress at this time. Patient and/or jb4 family updated on plan of care and expected duration. Pain level reassessed. Patient is alert, oriented x 3, equal unlabored respirations, skin warm/dry/pink. Pt can move all extremities and has equal strength in legs, hands, arms, and feet. facial droop has improved along with speech. 22:23 Reassessment: Patient appears in no apparent distress at this time. Patient and/or jb4 family updated on plan of care and expected duration. Pain level reassessed. Patient is alert, oriented x 3, equal unlabored respirations, skin warm/dry/pink. Family is at the bedside. 23:00 Reassessment: Patient appears in no apparent distress at this time. Patient and/or jb4 family updated on plan of care and expected duration. Pain level reassessed. Patient is alert, oriented x 3, equal unlabored respirations, skin warm/dry/pink. 10/08 00:00 Reassessment: Patient appears in no apparent distress at this time. Patient and/or jb4 family updated on plan of care and expected duration. Pain level reassessed. Patient is alert, oriented x 3, equal unlabored respirations, skin warm/dry/pink. PT still able to move all extremities, Equal strength noted to all extremities, droop remains on the right of the face and speech continues to be slurred. 01:00 Reassessment: Patient appears in no apparent distress at this time. Patient and/or jb4 family updated on plan of care and expected duration. Pain level reassessed. Patient is alert, oriented x 3, equal unlabored respirations, skin warm/dry/pink. 01:57 Reassessment: Patient appears in no apparent distress at this time. Patient and/or jb4 family updated on plan of care and expected duration. Pain level reassessed. Patient is alert, oriented x 3, equal unlabored respirations, skin warm/dry/pink. Vital Signs: 10/07 14:20 BP 177 / 106; Pulse 82; Resp 17; Temp 97.5(TE); Pulse Ox 98% on R/A; Weight 77.11 kg tw2 (R); Height 5 ft. 5 in. (165.10 cm) (R); Pain 0/10; 15:45 BP 180 / 78; Pulse 71; Resp 19; Pulse Ox 99% ; bp 16:55 BP 154 / 78; Pulse 74; Resp 21; Pulse Ox 98% ; bp 18:08 BP 116 / 71; Pulse 78; Resp 16; Pulse Ox 93% ; bp 19:45 BP 148 / 74; Pulse 75; Resp 16; Pulse Ox 100% on R/A; jb4 20:45 BP 142 / 73; Pulse 74; Resp 18; Pulse Ox 98% on R/A; jb4 21:30 BP 136 / 84; Pulse 75; Resp 16; Pulse Ox 98% on R/A; jb4 22:15 BP 124 / 80; Pulse 79; Resp 18; Pulse Ox 97% on R/A; jb4 23:00 BP 149 / 65; Pulse 81; Resp 16; Pulse Ox 98% on R/A; jb4 10/08 00:15 BP 148 / 76; Pulse 73; Resp 16; Pulse Ox 98% on R/A; jb4 01:45 BP 144 / 72; Pulse 76; Resp 18; Pulse Ox 99% on 2 lpm NC; jb4 10/07 14:20 Body Mass Index 28.29 (77.11 kg, 165.10 cm) tw2 NIH Stroke Scale Scores: 10/07 15:12 NIHSS Score: 0 bp 19:10 NIHSS Score: 2 jb4 ED Course: 14:18 Patient arrived in ED. mr 14:20 Amador Lopez MD is Private Physician. mr 14:20 Triage completed. tw2 14:20 Arm band placed on. tw2 14:26 Aravind TaylorJILLIAN is Primary Nurse. bp 14:27 Juan Jose Tan MD is Attending Physician. kdr 14:54 CT Stroke Brain w/o Contrast In Process Unspecified. EDMS 14:57 EKG done, by boiler technician. reviewed by Juan Jose Tan MD. at1 14:58 Stroke CXR 1 View In Process Unspecified. EDMS 15:05 Inserted saline lock: 20 gauge in right antecubital area, using aseptic technique. bp Blood collected. 15:11 Patient has correct armband on for positive identification. Bed in low position. Call bp light in reach. Side rails up X2. Adult w/ patient. 18:52 CT Head Angio In Process Unspecified. EDMS 21:03 Denisa Cuevas MD is Hospitalizing Provider. tw4 10/08 01:39 No provider procedures requiring assistance completed. Patient admitted, IV remains in jb4 place. Administered Medications: 10/07 15:32 Drug: Aspirin 325 mg Route: PO; bp 19:00 Follow up: Response: No adverse reaction jb4 17:43 Drug: Ativan 0.5 mg Route: IVP; Site: right antecubital; bp 19:00 Follow up: Response: No adverse reaction jb4 Outcome: 21:04 Decision to Hospitalize by Provider. tw4 10/08 01:39 Admitted to Tele accompanied by tech, via wheelchair, room 428, with chart, Report jb4 called to Jillian Toney Condition: stable Discharge instructions given to patient, family, Instructed on the need for admit, Demonstrated understanding of instructions. 02:02 Patient left the ED. jb4 NIH Stroke Scale - NIH Stroke Score Date: 10/07/2019 Time: 15:12 Total Score = 0 1a. Level of Consciousness (LOC) - 0(Alert) 1b. Level of Consciousness (LOC) (Year \T\ Age) - 0(Both) 1c. LOC Commands (Open \T\ Closes Eyes/Probate Judge) - 0(Both) 2. Best Gaze (Lateral Gaze Paresis) - 0(Normal) 3. Visual Field Loss - 0(No visual loss) 4. Facial Palsy - 0(Normal) 5a. Left Arm: Motor (10-second hold) - 0(No drift) 5b. Right Arm: Motor (10-second hold) - 0(No drift) 6a. Left Leg: Motor (5-second hold - always test supine) - 0(No drift) 6b. Right Leg: Motor (5-second hold - always test supine) - 0(No drift) 7. Limb Ataxia (finger/nose \T\ heel/maravilla - test with eyes open) - 0(Absent) 8. Sensory Loss (pinprick arms/legs/face) - 0(Normal) 9. Best Language: Aphasia (description/naming/reading) - 0(No aphasia) 10. Dysarthria (speech clarity - read or repeat words) - 0(Normal) 11. Extinction and Inattention (visual/tactile/auditory/spatial/personal) - 0(No abnormality) Initials: bp NIH Stroke Scale - NIH Stroke Score Date: 10/07/2019 Time: 19:10 Total Score = 2 1a. Level of Consciousness (LOC) - 0(Alert) 1b. Level of Consciousness (LOC) (Year \T\ Age) - 0(Both) 1c. LOC Commands (Open \T\ Closes Eyes/Probate Judge) - 0(Both) 2. Best Gaze (Lateral Gaze Paresis) - 0(Normal) 3. Visual Field Loss - 0(No visual loss) 4. Facial Palsy - 1(Minor Paralysis) 5a. Left Arm: Motor (10-second hold) - 0(No drift) 5b. Right Arm: Motor (10-second hold) - 0(No drift) 6a. Left Leg: Motor (5-second hold - always test supine) - 0(No drift) 6b. Right Leg: Motor (5-second hold - always test supine) - 0(No drift) 7. Limb Ataxia (finger/nose \T\ heel/maravilla - test with eyes open) - 0(Absent) 8. Sensory Loss (pinprick arms/legs/face) - 0(Normal) 9. Best Language: Aphasia (description/naming/reading) - 0(No aphasia) 10. Dysarthria (speech clarity - read or repeat words) - 1(Mild to Moderate) 11. Extinction and Inattention (visual/tactile/auditory/spatial/personal) - 0(No abnormality) Initials: jb4 Signatures: Dispatcher [employer] EDMS Juan Jose aTn MD MD kdr Rivera, Mary mr Darlene Armijo, title department manager EKG Tat1 Lola Coker RN RN tw2 Venu Olivares RN RN jb4 Aravind Taylor RN RN Marek Menchaca, MD SINGLETARY tw4 Corrections: (The following items were deleted from the chart) 10/07 21:53 20:58 Reassessment: Patient appears in no apparent distress at this time. jb4 Patient and/or family updated on plan of care and expected duration. Pain level reassessed. Patient is alert, oriented x 3, equal unlabored respirations, skin warm/dry/pink. jb4 10/08 02:02 00:00 Reassessment: Patient appears in no apparent distress at this time. jb4 Patient and/or family updated on plan of care and expected duration. Pain level reassessed. Patient is alert, oriented x 3, equal unlabored respirations, skin warm/dry/pink. jb4
--- NOTE | 2019-10-07 21:05 | EDPHYS ---
Physician Documentation [facility] Name: Gaby Burnett Age: 83 yrs Sex: Female : 1935 Arrival Date: 10/07/2019 Time: 14:18 Bed 13 Private MD: Amador Lopez ED Physician Juan Jose Tan HPI: 10/07 19:02 This 83 yrs old Female presents to ER via Wheelchair with complaints of kdr Slurred Speech, Headache, Diarrhea. 19:02 The patient presents to the emergency department with weakness of the right side of the kdr face, a speech or higher order brain function problem, aphasia, that is moderate. Onset: The symptoms/episode began/occurred at an unknown time. Context: occurred at home, occurred while the patient was asleep, at rest. Associated signs and symptoms: The patient has no apparent associated signs or symptoms. Severity of symptoms: At their worst the symptoms were mild moderate just prior to arrival. Patient's baseline: Neuro: alert and fully oriented, Motor: no deficits, Ambulation: walks without assistance, Speech: normal for age, The patient has a previous history of CVA. The patient woke at about 4:30 AM today and noted that her speech was slurred and her right upper extremity was weak. She went back to bed. She had had similar s/s with a CVA last year that had resolved.. Historical: - Allergies: 14:21 PENICILLINS; tw2 - Home Meds: 14:21 levothyroxine oral [Active]; high blood pressure medicine [Active]; tw2 - PMHx: 14:21 Hypertension; Hypothyroidism; tw2 - PSHx: 14:21 Cholecystectomy; Hysterectomy; tumor removal; Appendectomy; tw2 - Immunization history:: Adult Immunizations. - Social history:: Smoking status: . - Ebola Screening: : Patient negative for fever greater than or equal to 101.5 degrees Fahrenheit, and additional compatible Ebola Virus Disease symptoms. ROS: 19:07 Constitutional: Negative for fever, chills, and weight loss, Eyes: Negative for injury, kdr pain, redness, and discharge, ENT: Negative for injury, pain, and discharge, Neck: Negative for injury, pain, and swelling, Cardiovascular: Negative for chest pain, palpitations, and edema, Respiratory: Negative for shortness of breath, cough, wheezing, and pleuritic chest pain, Abdomen/GI: Negative for abdominal pain, nausea, vomiting, diarrhea, and constipation, Back: Negative for injury and pain, : Negative for injury, bleeding, discharge, and swelling, MS/Extremity: Negative for injury and deformity, Skin: Negative for injury, rash, and discoloration, Psych: Negative for depression, anxiety, suicide ideation, homicidal ideation, and hallucinations, Allergy/Immunology: Negative for hives, rash, and allergies, Endocrine: Negative for neck swelling, polydipsia, polyuria, polyphagia, and marked weight changes, Hematologic/Lymphatic: Negative for swollen nodes, abnormal bleeding, and unusual bruising. 19:07 Neuro: Positive for speech changes, weakness. Exam: 19:07 Constitutional: This is a well developed, well nourished patient who is awake, alert, kdr and in no acute distress. Head/Face: Normocephalic, atraumatic. Eyes: Pupils equal round and reactive to light, extra-ocular motions intact. Lids and lashes normal. Conjunctiva and sclera are non-icteric and not injected. Cornea within normal limits. Periorbital areas with no swelling, redness, or edema. Neck: Trachea midline, no thyromegaly or masses palpated, and no cervical lymphadenopathy. Supple, full range of motion without nuchal rigidity, or vertebral point tenderness. No Meningismus. Chest/axilla: Normal chest wall appearance and motion. Nontender with no deformity. No lesions are appreciated. Cardiovascular: Regular rate and rhythm with a normal S1 and S2. No gallops, murmurs, or rubs. Normal PMI, no JVD. No pulse deficits. Respiratory: Lungs have equal breath sounds bilaterally, clear to auscultation and percussion. No rales, rhonchi or wheezes noted. No increased work of breathing, no retractions or nasal flaring. Abdomen/GI: Soft, non-tender, with normal bowel sounds. No distension or tympany. No guarding or rebound. No evidence of tenderness throughout. Back: No spinal tenderness. No costovertebral tenderness. Full range of motion. Skin: Warm, dry with normal turgor. Normal color with no rashes, no lesions, and no evidence of cellulitis. MS/ Extremity: Pulses equal, no cyanosis. Neurovascular intact. Full, normal range of motion. Psych: Awake, alert, with orientation to person, place and time. Behavior, mood, and affect are within normal limits. 19:07 Neuro: Orientation: appropriate for stated age. Vital Signs: 14:20 BP 177 / 106; Pulse 82; Resp 17; Temp 97.5(TE); Pulse Ox 98% on R/A; Weight 77.11 kg tw2 (R); Height 5 ft. 5 in. (165.10 cm) (R); Pain 0/10; 15:45 BP 180 / 78; Pulse 71; Resp 19; Pulse Ox 99% ; bp 16:55 BP 154 / 78; Pulse 74; Resp 21; Pulse Ox 98% ; bp 18:08 BP 116 / 71; Pulse 78; Resp 16; Pulse Ox 93% ; bp 19:45 BP 148 / 74; Pulse 75; Resp 16; Pulse Ox 100% on R/A; jb4 20:45 BP 142 / 73; Pulse 74; Resp 18; Pulse Ox 98% on R/A; jb4 21:30 BP 136 / 84; Pulse 75; Resp 16; Pulse Ox 98% on R/A; jb4 22:15 BP 124 / 80; Pulse 79; Resp 18; Pulse Ox 97% on R/A; jb4 23:00 BP 149 / 65; Pulse 81; Resp 16; Pulse Ox 98% on R/A; jb4 10/08 00:15 BP 148 / 76; Pulse 73; Resp 16; Pulse Ox 98% on R/A; jb4 01:45 BP 144 / 72; Pulse 76; Resp 18; Pulse Ox 99% on 2 lpm NC; jb4 10/07 14:20 Body Mass Index 28.29 (77.11 kg, 165.10 cm) tw2 NIH Stroke Scale Scores: 10/07 15:12 NIHSS Score: 0 bp 19:10 NIHSS Score: 2 jb4 MDM: 21:04 Patient medically screened. 4 10/07 14:28 Order name: Basic Metabolic Panel; Complete Time: 18:16 kdr 10/07 14:28 Order name: CBC with Diff kdr 10/07 14:28 Order name: Protime (+inr); Complete Time: 18:16 kdr 10/07 14:28 Order name: Ptt, Activated; Complete Time: 18:16 kdr 10/07 14:28 Order name: CT Stroke Brain w/o Contrast; Complete Time: 15:15 kdr 10/07 14:28 Order name: Stroke CXR 1 View; Complete Time: 18:16 kdr 10/07 16:38 Order name: Brain W/Wo Cont EDMS 10/07 16:38 Order name: MRA Neck W/Wo Cont EDMS 10/07 16:38 Order name: MRA Head Wo Cont EDMS 10/07 18:24 Order name: CT Head Angio; Complete Time: 21:02 kdr 10/07 14:28 Order name: EKG; Complete Time: 14:29 kdr 10/07 14:28 Order name: Accucheck; Complete Time: 15:00 kdr 10/07 14:28 Order name: Cardiac monitoring; Complete Time: 15:00 kdr 10/07 14:28 Order name: EKG - Nurse/Tech; Complete Time: 14:59 kdr 10/07 14:28 Order name: IV Saline Lock; Complete Time: 15:11 kdr 10/07 14:28 Order name: Labs collected and sent; Complete Time: 15:11 kdr 10/07 14:28 Order name: NPO; Complete Time: 14:59 kdr 10/07 14:28 Order name: O2 Per Protocol; Complete Time: 14:59 kdr 10/07 14:28 Order name: O2 Sat Monitoring; Complete Time: 14:59 kdr 10/07 14:28 Order name: Stroke Swallow Screen; Complete Time: 14:59 kdr Administered Medications: 15:32 Drug: Aspirin 325 mg Route: PO; bp 19:00 Follow up: Response: No adverse reaction jb4 17:43 Drug: Ativan 0.5 mg Route: IVP; Site: right antecubital; bp 19:00 Follow up: Response: No adverse reaction jb4 Disposition: 10/07/19 21:04 Hospitalization ordered by Denisa Cuevas for Inpatient Admission. Preliminary diagnosis is Aphasia following cerebral infarction. - Bed requested for Telemetry/MedSurg (Inpatient). - Status is Inpatient Admission. jb4 - Condition is Stable. - Problem is new. - Symptoms have improved. UTI on Admission? No NIH Stroke Scale - NIH Stroke Score Date: 10/07/2019 Time: 15:12 Total Score = 0 1a. Level of Consciousness (LOC) - 0(Alert) 1b. Level of Consciousness (LOC) (Year \T\ Age) - 0(Both) 1c. LOC Commands (Open \T\ Closes Eyes/Urologist Md) - 0(Both) 2. Best Gaze (Lateral Gaze Paresis) - 0(Normal) 3. Visual Field Loss - 0(No visual loss) 4. Facial Palsy - 0(Normal) 5a. Left Arm: Motor (10-second hold) - 0(No drift) 5b. Right Arm: Motor (10-second hold) - 0(No drift) 6a. Left Leg: Motor (5-second hold - always test supine) - 0(No drift) 6b. Right Leg: Motor (5-second hold - always test supine) - 0(No drift) 7. Limb Ataxia (finger/nose \T\ heel/maravilla - test with eyes open) - 0(Absent) 8. Sensory Loss (pinprick arms/legs/face) - 0(Normal) 9. Best Language: Aphasia (description/naming/reading) - 0(No aphasia) 10. Dysarthria (speech clarity - read or repeat words) - 0(Normal) 11. Extinction and Inattention (visual/tactile/auditory/spatial/personal) - 0(No abnormality) Initials: bp NIH Stroke Scale - NIH Stroke Score Date: 10/07/2019 Time: 19:10 Total Score = 2 1a. Level of Consciousness (LOC) - 0(Alert) 1b. Level of Consciousness (LOC) (Year \T\ Age) - 0(Both) 1c. LOC Commands (Open \T\ Closes Eyes/Urologist Md) - 0(Both) 2. Best Gaze (Lateral Gaze Paresis) - 0(Normal) 3. Visual Field Loss - 0(No visual loss) 4. Facial Palsy - 1(Minor Paralysis) 5a. Left Arm: Motor (10-second hold) - 0(No drift) 5b. Right Arm: Motor (10-second hold) - 0(No drift) 6a. Left Leg: Motor (5-second hold - always test supine) - 0(No drift) 6b. Right Leg: Motor (5-second hold - always test supine) - 0(No drift) 7. Limb Ataxia (finger/nose \T\ heel/maravilla - test with eyes open) - 0(Absent) 8. Sensory Loss (pinprick arms/legs/face) - 0(Normal) 9. Best Language: Aphasia (description/naming/reading) - 0(No aphasia) 10. Dysarthria (speech clarity - read or repeat words) - 1(Mild to Moderate) 11. Extinction and Inattention (visual/tactile/auditory/spatial/personal) - 0(No abnormality) Initials: jb4 Signatures: Dispatcher [employer] [facility] Juan Jose Tan MD MD [facility] Maggy Sherwood, RN RN Lola Coker RN RN tw2 Venu Olivares, RN RN jb4 Aravind Taylor, RN RN bp Marek Marlow MD MD tw4 Corrections: (The following items were deleted from the chart) 14:54 14:27 Head Brain Wo [id number] ordered. [facility] EDGA 16:36 14:58 Stroke Protocol ordered. [facility] 10/08 01:11 10/07 21:04 Hospitalization Ordered by Denisa Cuevas MD for Inpatient Admission. cg Preliminary diagnosis is Aphasia following cerebral infarction. Bed requested for Telemetry/MedSurg (Inpatient). Status is Inpatient Admission. Condition is Stable. Problem is new. Symptoms have improved. UTI on Admission? No. tw4 10/08 02:02 01:11 10/07/2019 21:04 Hospitalization Ordered by Denisa Cuevas MD for Inpatient jb4 Admission. Preliminary diagnosis is Aphasia following cerebral infarction. Bed requested for Telemetry/MedSurg (Inpatient). Status is Inpatient Admission. Condition is Stable. Problem is new. Symptoms have improved. UTI on Admission? No. cg
--- NOTE | 2019-10-07 23:57 | P.HP ---
Certification for Inpatient Patient admitted to: Observation With expected LOS: <2 Midnights Patient will require the following post-hospital care: Home Health Services Practitioner: I am a practitioner with admitting privileges, knowledge of patient current condition, hospital course, and medical plan of care. Services: Services provided to patient in accordance with Admission requirements found in Title 42 Section 412.3 of the Code of Federal Regulations Patient History Date of Service: 10/08/19 Reason for admission: Slurred speech History of Present Illness: mere kent is an 83yoF w/ pmhx of CVA, hypothyroidism and HTN who presents w / slurred speech at 0400 with the last time of being within her normal state of health prior to going to bed. she denies f/c/cp/sob/vomiting. she reports MARIEE x 3 days and coughing ( she is unclear if present when eating). she also noted that she had diarrhea. she noted that she felt weakness of the right side of her mouth and face. she underwent ED evaluation but could not tolerate MRI and thus underwent CTA, thus per ED MD she was to have neuro eval and MRI. present on eval she has slurred speech still present but notes that her speech is improved to her. she denied tobacco, etoh, drug use. Allergies Penicillins Allergy (Verified 10/08/19 02:45) Itching/Hives/Rash - Family History Father Notes: lymphoma Mother -: Cancer Notes: breast ca - Social History Alcohol use: No CD- Drugs: No Review of Systems General: Weakness Eyes: As per HPI ENT: As per HPI Respiratory: Cough Cardiovascular: As per HPI Gastrointestinal: Nausea, Distention Genitourinary: Unremarkable Musculoskeletal: Unremarkable Integumentary: Unremarkable Neurological: Weakness, Numbness, Change in Speech Lymphatics: Unremarkable Physical Examination - Physical Exam General: Alert, In no apparent distress, Oriented x3, Cooperative HEENT: PERRLA, Other (low superior right eyelid, right sided facial droop ), EOMI Neck: Supple Respiratory: Clear to auscultation bilaterally, Normal air movement Cardiovascular: No edema, Normal pulses, No murmurs Gastrointestinal: Soft and benign, No rebound, No guarding, Hyperactive, Distended Musculoskeletal: No swelling, No erythema Integumentary: No rashes, No breakdown Neurological: Other (strength noted mildly decreased on RUE but otherwise 5/5; gait not tested ) External genitalia: Deferred Rectal: Deferred - Studies Laboratory Data (last 24 hrs) 10/07/19 15:05: PT 11.4, INR 0.96, APTT 31.5 10/07/19 15:05: WBC 11.3 H, Hgb 14.3, Hct 41.8, Plt Count 239 10/07/19 15:05: Sodium 140, Potassium 3.8, BUN 31 H, Creatinine 0.92, Glucose 96 Assessment and Plan - Plan 83yoF admitted w/ aphasia/slurred speech : TIA vs CVA : has hx of CVA MRI brain pending a1c, lipid panel, tsh and monitor on tele neuro consulted PT and speech for dysphagia screening HTN monitor BP and restart home meds as needed PRN med for uncontrolled BP hypothyroidism obtain TSH and restart home medication DVT ppx - SCDs - Advance Directives Does patient have a Living Will: Yes Does patient have a Durable POA for Healthcare: Yes
[2019-10-08] MEDS ORDERED: ONDANSETRON 4 MG/2 ML VIAL IV PRN (01:08)
[2019-10-08] MEDS ORDERED: ACETAMINOPHEN 500 MG TAB PO PRN (01:08)
[2019-10-08 02:17] LABS: CKMB Creatine Kinase MB < 1.0 ng/mL (0.3-3.6); Troponin I < 0.02 ng/mL (0.0-0.045)
[2019-10-08 02:48] VITALS: BMI 28.1
[2019-10-08] MEDS: IPRATROPIUM BROM 0.5MG/2.5ML NEB SCH ×4 (03:30→20:05)
[2019-10-08 03:34] LABS: Urine Appearance CLEAR; Urine Bilirubin NEGATIVE (NEG); Urine Blood NEGATIVE (NEG); Urine Color YELLOW; Urine Glucose NEGATIVE (NEG); Urine Protein NEGATIVE (NEG); Urine Specific Gravity >=1.030 (1.005-1.030); Urine Urobilinogen 0.2 mg/dL (0.2-1.0)
[2019-10-08 03:35] LABS: Urine Microscopic Reflex ORDER UMIC
[2019-10-08 03:52] LABS: Urine Bacteria <20 /HPF (<20); Urine Culture Reflex Order REFLEXED; Urine Mucus 1+ /HPF (NONE SEEN); Urine RBC <5 /HPF (NONE SEEN)
[2019-10-08 06:09] LABS: Absolute Lymphocytes (CBC) 2.3 K/uL (0.7-4.9); Basophils % 0.4 % (0-1.3); Hematocrit 36.7 % (36.0-45.0); Lymphocytes % 29.2 % (15.3-44.8); MPV 9.6 fL (7.6-11.3); RBC Red Blood Cell Count 4.13 M/uL (3.86-4.86)
[2019-10-08 06:42] LABS: Protime INR 0.96
--- NOTE | 2019-10-08 07:08 | EKG ---
Test Date: 2019-10-07 Test Time: 14:35:27 [employer] Type Screw Machine Operator: CARRIE MEASUREMENT RESULTS: Intervals: Rate: 82 AR: 166 QRSD: 78 QT: 372 QTc: 434 [place]: P: 41 AR: 166 QRS: 22 T: 86 INTERPRETIVE STATEMENTS: Sinus rhythm with premature atrial complexes in a pattern of bigeminy Cannot rule out Inferior infarct, age undetermined Abnormal ECG Compared to ECG 08/19/2018 06:30:19 Myocardial infarct finding now present T-wave abnormality no longer present Electronically Signed On 10-08-19 07:07:00 KAYAKING INSTRUCTOR by Gordon Menon
[2019-10-08 08:52] LABS: Albumin 3.3 g/dL (3.4-5.0); Bilirubin Total 0.4 mg/dL (0.2-1.0); Magnesium 2.3 mg/dL (1.8-2.4); Potassium 3.5 mmol/L (3.5-5.1); Protein, Total 6.9 g/dL (6.4-8.2)
[2019-10-08 08:55] LABS: Thyroid Stimulating Hormone 7.08 uIU/mL (0.360-3.740)
[2019-10-08] MEDS ORDERED: LORazepam 2 MG/ML VIAL IV ONE (09:00)
[2019-10-08] MEDS: ASPIRIN 81 MG CHEWABLE TABLET PO SCH (10:28)
[2019-10-08] MEDS: CLOPIDOGREL 75 MG TABLET PO SCH ×2 (10:28→10:29)
--- NOTE | 2019-10-08 10:31 | RAD REPORT ---
EXAM DESCRIPTION: MRI - Brain W/Wo Cont - 10/08/2019 10:20 am CLINICAL HISTORY: Slurred speech, stroke-like symptoms COMPARISON: CT head, CT angio head and neck October 07 TECHNIQUE: Sagittal and axial T1-weighted images were obtained. Axial PD/heavily T2-weighted and T2- FLAIR images were obtained along with axial DWI/ADC mapping sequences. Coronal heavily T2 weighted s equence obtained. Axial and coronal post-contrast T1-weighted images were also obtained. A ml Multi gucci contrast following utilized. FINDINGS: No intracranial hemorrhage present. There is no mass effect, edema or shift of midline str uctures. Patient has as a baseline moderately prominent atrophy and moderate severity chronic ischemi c change scattered throughout the cerebral white matter. Brainstem and thalamus tissues are spared an y significant chronic ischemic change. Diffusion-weighted imaging shows multiple areas of abnormal signal. These are primarily cortical base d around the central sulcus. Additional foci are seen in the left frontal lobe cortex and subcortical white matter. There is corresponding hypointense signal on ADC mapping. No significant cortical michelle a or sulcal effacement. Signal voids are seen as a normal finding in the major intracranial vessels. No abnormal enhancement at the sites of infarction. No abnormal enhancement seen in the brain parench yma or dura. Mastoid air cells and paranasal sinuses are clear. No globe or orbital content abnormality. IMPRESSION: Multiple acute nonhemorrhagic cortical and subcortical white matter infarctions in the l eft cerebral hemisphere. CVA changes are clustered near the central sulcus. Left frontal lobe is invo lved as well. Infarction pattern is in the distribution of the left middle cerebral artery and involves multiple pe ripheral branches. As detailed on separate MRA Head and neck imaging, this shower type embolic patter n could be coming from the proximal left internal carotid artery for from the proximal left MCA. Patient has baseline moderately prominent atrophy and chronic ischemic change.
--- NOTE | 2019-10-08 10:38 | RAD REPORT ---
EXAM DESCRIPTION: MRI - MRA Neck W/Wo Cont - 10/08/2019 10:24 am CLINICAL HISTORY: Slurred speech, right arm numbness COMPARISON: MRI brain same date, CT head same date TECHNIQUE: MR angiography of the cervical vasculature performed. Coronal imaging plane acquisition u tilized. A MultiHance contrast volume was utilized. Coronal reformatted images were generated and re viewed. Vertical axis 3D rotational projections obtained using maximum intensity projection protocol. FINDINGS: The aortic arch is 3 vessel configuration with no origins stenosis. Vertebral artery origi ns are inadequately visualized. Vertebral arteries are codominant. No vertebral artery abnormality. Bilateral common carotid artery show no significant findings. There is atherosclerotic changes eviden t at the left carotid bulb with luminal narrowing relative to the right. The more significant focal b andlike narrowing is present at the bulb- ICA junction on the left. This is a greater than 50% stenos is. The remainder of the left internal carotid artery to the cavernous sinus shows no suspicious find ing. No significant disease of the right internal carotid artery. IMPRESSION: Exam has motion degradation. However, there is evidence for a mild luminal narrowing of the left carotid bulb and a significant 60-70% stenosis at the left bulb - left ICA junction.
--- NOTE | 2019-10-08 10:45 | RAD REPORT ---
EXAM DESCRIPTION: MRI - MRA Head Wo Cont - 10/08/2019 10:20 am CLINICAL HISTORY: Right arm numbness, weakness, slurred speech COMPARISON: MRA neck, MRI brain, CT head and CT angio imaging October 07 TECHNIQUE: Axial and coronal 3D [id number] image acquisition was performed. 3D rotational images were generated with source and reconstruction images reviewed. Horizontal and vertical axis rotation al views generated using MIP protocol. FINDINGS: Major venous sinuses are patent. Distal vertebral artery show no suspicious findings. There is mild 20- 30% stenosis in the mid basila r artery. Mild to moderate atherosclerotic changes are present in the bilateral posterior cerebral ar suyapa distributions. Patient has a normal variant large right-sided posterior communicating artery wit h absent or very small right [employer] P1 segment. No significant finding in the right middle cerebral artery distribution nor in either anterior cerebr al artery distribution. Examination shows substantial luminal narrowing and irregular contour to the M1 and M2 portions of th e left middle cerebral artery distribution. Far peripheral branches are decreased. The CT angio study did not show significant left middle cerebral artery disease. This examination tevin ws significant disease but also has motion degradation artifact. The patient stroke pattern does matc h with left middle cerebral artery disease causing a shower emboli or multi branch infarction pattern . Patient has short-segment focal stenosis in the proximal left internal carotid artery which is also a possible source. IMPRESSION: The motion degraded study shows significant left middle cerebral artery luminal narrowin g and irregular contour. The MRA and CTA findings are discordant. The patient's stroke pattern is consistent with shower embol i into multiple branches in the left frontal lobe with and clustered in the central sulcus of the lef t parietal lobe. Stroke pattern would explain the speech and right extremity symptoms. Source of the emboli a could be left middle cerebral artery, proximal left internal carotid artery or less likely cardiac.
[2019-10-08] MEDS ORDERED: MORPHINE 2 MG/ML SYR IV PRN (11:01)
[2019-10-08 11:26] LABS: CKMB Creatine Kinase MB < 1.0 ng/mL (0.3-3.6); Troponin I < 0.02 ng/mL (0.0-0.045)
--- NOTE | 2019-10-08 13:33 | P.PN ---
Subjective Date of Service: 10/08/19 Chief Complaint: Slurred speech Subjective: No new changes Review of Systems General: Unremarkable Eyes: Unremarkable ENT: Unremarkable Respiratory: Unremarkable Cardiovascular: Unremarkable Gastrointestinal: Unremarkable Musculoskeletal: Unremarkable Integumentary: Unremarkable Neurological: Change in Speech Physical Examination - Vital Signs Temperature: 97 F Blood Pressure: 134/63 Pulse: 66 Respirations: 16 Pulse Ox (%): 96 - Physical Exam General: Alert, In no apparent distress, Oriented x3 HEENT: Normocephalic, PERRLA, Mucous membr. moist/pink, EOMI Neck: Supple, 2+ carotid pulse no bruit, JVD not distended, No Thyromegaly Respiratory: Clear to auscultation bilaterally, Normal air movement Cardiovascular: No edema, Normal pulses, Regular rate/rhythm, Normal S1 S2 Capillary refill: <2 Seconds Gastrointestinal: Normal bowel sounds, Soft and benign, Non-distended, No ascites, No tenderness, No masses, No rebound, No guarding Musculoskeletal: No clubbing, No swelling, No contractures, No erythema, No tenderness, No warmth Integumentary: No rashes, No breakdown, No significant lesion, No tenderness/ swelling, No erythema, No warmth, No cyanosis Neurological: Normal strength at 5/5 x4 extr, Normal tone, Sensation intact, Cranial nerves 3-12 intact, Normal reflexes 2+, Other (right sided facial droop present), Abnormal speech Lymphatics: No axilla or inguinal lymphadenopathy - Studies Laboratory Data (last 24 hrs) 10/08/19 10:22: Triglycerides 204 H, Cholesterol 210 H, HDL Cholesterol 45, Cholesterol/HDL Ratio 4.67 10/08/19 10:22: Troponin I < 0.02 10/08/19 05:45: Sodium 141, Potassium 3.5, BUN 25 H, Creatinine 0.79, Glucose 109 H, Magnesium 2.3, Total Bilirubin 0.4, AST 14 L, ALT 21, Alkaline Phosphatase 42 L 10/08/19 05:45: PT 11.3, INR 0.96 10/08/19 05:45: WBC 7.9 D, Hgb 12.6, Hct 36.7, Plt Count 200 10/08/19 01:45: Troponin I < 0.02 10/07/19 15:05: PT 11.4, INR 0.96, APTT 31.5 10/07/19 15:05: WBC 11.3 H, Hgb 14.3, Hct 41.8, Plt Count 239 10/07/19 15:05: Sodium 140, Potassium 3.8, BUN 31 H, Creatinine 0.92, Glucose 96 Assessment And Plan - Current Problems (Diagnosis) (1) CVA (cerebral vascular accident) Current Visit: Yes Status: Acute Qualifiers: CVA mechanism: thrombosis Precerebral and cerebral artery: carotid artery Laterality of affected vessel: left Qualified Code(s): I63.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 Patient today is doing somewhat better. Patient continues to have right-sided facial droop with slurred speech. No other focal neurologic deficits. MRI/MRA of head and neck shows left-sided significant carotid stenosis. Acute stroke identified on MRI. Most likely either from left carotid artery or left cerebral artery. No large occlusive disease present. NIH scale 2 currently. The patient was placed on aspirin, Plavix, atorvastatin. Neurology has been consulted. Patient will have continued monitoring and neurologic exams. Will assess lipid profile. Speech therapy will also be consulted. Will await consultation from Dr. perez Discharge Plan: Home Plan to discharge in: 48 Hours - Code Status/Comfort Care Code Status Assessed: No Critical Care: No Time Spent Managing PTS Care (In Minutes): 35
--- NOTE | 2019-10-08 15:59 | ECHO ---
HEIGHT: 5 ft 5 in WEIGHT: 169 lb 6.4 oz DATE OF STUDY: 10/08/[address]: Denisa Cuevas 2-DIMENSIONAL: YES M.MODE: YES DOPPLER: YES COLOR FLOW: YES TDS: PORTABLE: DEFINITY: BUBBLE STUDY: DIAGNOSIS: STROKE CARDIAC HISTORY: CATHERIZATION: NO SURGERY: NO PROSTHETIC VALVE: NO PACEMAKER: NO MEASUREMENTS (cm) DIASTOLIC (NORMALS) SYSTOLIC (NORMALS) IVSd 0.9 (0.6-1.2) LA Diam 3.0 (1.9-4.0) LVEF 75% LVIDd 4.1 (3.5-5.7) LVIDs 2.3 (2.0-3.5) %FS 43% LVPWd 1.2 (0.6-1.2) Ao Diam 3.2 (2.0-3.7) 2 DIMENSIONAL ASSESSMENT: RIGHT ATRIUM: NORMAL LEFT ATRIUM: NORMAL RIGHT VENTRICLE: NORMAL LEFT VENTRICLE: NORMAL TRICUSPID VALVE: NORMAL MITRAL VALVE: NORMAL PULMONIC VALVE: NORMAL AORTIC VALVE: SCLEROSIS PERICARDIAL EFFUSION: NONE AORTIC ROOT: NORMAL LEFT VENTRICULAR WALL MOTION: NORMAL DOPPLER/COLOR FLOW: NORMAL COMMENTS: NORMAL LEFT SIZE AND FUNCTION. AORTIC SCLEROSIS NO STENOSIS. NO WALL MOTION ABNORMALITY. NO EFFUSION. TECHNOLOGIST: JONNATHAN RIVERO
--- NOTE | 2019-10-08 16:05 | P.DS ---
Admission Date: 10/08/19 Discharge Date: 10/08/19 Primary Care Provider: PCP Reason for Admission: Slurred speech Consultations: Dr. 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 Patient had presented with slurred speech and facial droop with right-sided weakness. Patient's blood pressure has been controlled. Patient was started on Plavix, aspirin, atorvastatin. He was confirmed via MRI/MRA head and neck the patient had an acute CVA. Neurology has been consulted and will continue to follow patient. Hospital Course: The patient has remained stable throughout hospital course. Patient was started on appropriate medications for acute CVA. Patient will now be transferred to the floor for rehabilitation and speech therapy. Patient will continue on medications that were started in the hospital. No other acute findings at this time. Patient seems to feel better and feels like her speech is improving. No right-sided weakness at this time. No acute deficits noted. <Musa Ladd - Last Filed: 10/08/19 16:00> Admission Date: 10/08/19 Discharge Date: 10/08/19 Hospital Course: Patient has been approved to inpatient rehab. This will likely not occur until Friday. Dr. Falcon will monitor patient over the weekend. <Sharif Shahid - Last Filed: 10/08/19 21:06> Disposition: TRANSFER TO INPATIENT REHAB Discharge Condition: GOOD Vital Signs/Physical Exam: Temp Pulse Resp BP Pulse Ox 97 F 66 16 134/63 96 10/08/19 13:33 10/08/19 13:33 10/08/19 13:33 10/08/19 13:33 10/08/19 13:33 General: Alert, Oriented x3, Cooperative HEENT: Normocephalic, PERRLA, Mucous membr. moist/pink, EOMI Neck: Supple, 2+ carotid pulse no bruit, JVD not distended, No Thyromegaly, No LAD Respiratory: Clear to auscultation bilaterally, Normal air movement Cardiovascular: No edema, Normal pulses, Regular rate/rhythm, Normal S1 S2, No gallops, No rubs, No murmurs Capillary refill: <2 Seconds Gastrointestinal: Normal bowel sounds, Soft and benign, Non-distended, No tenderness Musculoskeletal: No clubbing, No swelling, No contractures, No erythema, No tenderness, No warmth Integumentary: No rashes, No breakdown, No significant lesion, No tenderness/ swelling, No erythema, No warmth, No cyanosis Neurological: Normal gait, Normal strength at 5/5 x4 extr, Normal tone, Sensation intact, Cranial nerves 3-12 intact, Normal reflexes 2+, Normal affect , Other (Mild right-sided facial droop), Abnormal speech Lymphatics: No axilla or inguinal lymphadenopathy Laboratory Data at Discharge: WBC 7.9 K/uL (4.3-10.9) D 10/08/19 05:45 Hgb 12.6 g/dL (12.0-15.0) 10/08/19 05:45 Hct 36.7 % (36.0-45.0) 10/08/19 05:45 Plt Count 200 K/uL (152-406) 10/08/19 05:45 PT 11.3 SECONDS (9.5-12.5) 10/08/19 05:45 INR 0.96 10/08/19 05:45 APTT 31.5 SECONDS (24.3-36.9) 10/07/19 15:05 Sodium 141 mmol/L (136-145) 10/08/19 05:45 Potassium 3.5 mmol/L (3.5-5.1) 10/08/19 05:45 BUN 25 mg/dL (7-18) H 10/08/19 05:45 Creatinine 0.79 mg/dL (0.55-1.3) 10/08/19 05:45 Glucose 109 mg/dL (74-106) H 10/08/19 05:45 Magnesium 2.3 mg/dL (1.8-2.4) 10/08/19 05:45 Total Bilirubin 0.4 mg/dL (0.2-1.0) 10/08/19 05:45 AST 14 U/L (15-37) L 10/08/19 05:45 ALT 21 U/L (12-78) 10/08/19 05:45 Alkaline Phosphatase 42 U/L (45-117) L 10/08/19 05:45 Troponin I < 0.02 ng/mL (0.0-0.045) 10/08/19 10:22 Triglycerides 204 mg/dL (<150) H 10/08/19 10:22 Cholesterol 210 mg/dL (<200) H 10/08/19 10:22 HDL Cholesterol 45 mg/dL (40-60) 10/08/19 10:22 Cholesterol/HDL Ratio 4.67 10/08/19 10:22 <Musa Ladd - Last Filed: 10/08/19 16:00> Vital Signs/Physical Exam: Temp Pulse Resp BP Pulse Ox 97.8 F 69 18 112/75 93 10/08/19 16:00 10/08/19 16:00 10/08/19 16:00 10/08/19 16:00 10/08/19 16:00 Laboratory Data at Discharge: WBC 7.9 K/uL (4.3-10.9) D 10/08/19 05:45 Hgb 12.6 g/dL (12.0-15.0) 10/08/19 05:45 Hct 36.7 % (36.0-45.0) 10/08/19 05:45 Plt Count 200 K/uL (152-406) 10/08/19 05:45 PT 11.3 SECONDS (9.5-12.5) 10/08/19 05:45 INR 0.96 10/08/19 05:45 APTT 31.5 SECONDS (24.3-36.9) 10/07/19 15:05 Sodium 141 mmol/L (136-145) 10/08/19 05:45 Potassium 3.5 mmol/L (3.5-5.1) 10/08/19 05:45 BUN 25 mg/dL (7-18) H 10/08/19 05:45 Creatinine 0.79 mg/dL (0.55-1.3) 10/08/19 05:45 Glucose 109 mg/dL (74-106) H 10/08/19 05:45 Magnesium 2.3 mg/dL (1.8-2.4) 10/08/19 05:45 Total Bilirubin 0.4 mg/dL (0.2-1.0) 10/08/19 05:45 AST 14 U/L (15-37) L 10/08/19 05:45 ALT 21 U/L (12-78) 10/08/19 05:45 Alkaline Phosphatase 42 U/L (45-117) L 10/08/19 05:45 Troponin I < 0.02 ng/mL (0.0-0.045) 10/08/19 17:11 Triglycerides 204 mg/dL (<150) H 10/08/19 10:22 Cholesterol 210 mg/dL (<200) H 10/08/19 10:22 HDL Cholesterol 45 mg/dL (40-60) 10/08/19 10:22 Cholesterol/HDL Ratio 4.67 10/08/19 10:22 <Sharif Shahid - Last Filed: 10/08/19 21:06> Patient Discharge Instructions: The patient transferring to 5th floor for further rehabilitation after having acute CVA Diet: AHA Activity: Ad tarah Time spent managing pt's care (in minutes): 45 <Musa Ladd - Last Filed: 10/08/19 16:00> <Sharif Shahid - Last Filed: 10/08/19 21:06> Home Medications: Aspirin Chewable [Aspirin Chewable*] 81 mg PO DAILY #30 tab.chew 10/08/19 Atorvastatin Calcium [Lipitor] 80 mg PO BEDTIME 10/08/19 Clopidogrel Bisulfate [Plavix*] 75 mg PO DAILY #30 tablet 10/08/19 Folic Acid 1 mg PO DAILY #30 tablet 10/08/19 Levothyroxine Sodium 88 mcg PO [id number] 10/08/19 Levothyroxine Sodium 100 mcg PO [id number] 10/08/19 Losartan/Hydrochlorothiazide [Losartan-Hctz 100-12.5 mg Tab] 1 tab PO DAILY New Medications: Aspirin Chewable [Aspirin Chewable*] 81 mg PO DAILY #30 tab.chew Clopidogrel Bisulfate [Plavix*] 75 mg PO DAILY #30 tablet Folic Acid 1 mg PO DAILY #30 tablet
[2019-10-08 17:38] LABS: CKMB Creatine Kinase MB < 1.0 ng/mL (0.3-3.6); Troponin I < 0.02 ng/mL (0.0-0.045)
[2019-10-08] MEDS: ENOXAPARIN 40 MG/0.4 ML SQ SCH (17:41)
[2019-10-08] MEDS: ATORVASTATIN 40 MG TAB PO SCH (20:19)
--- NOTE | 2019-10-09 02:04 | CON ---
Reason For Consultation: Consultation called because of stroke. History Of Present Illness: Ms. Burnett is an 83-year-old patient with hypertension, who comes in to [facility] on the after she woke up and tried to use bathroom and noticed subsequently she had problems getting words out. Her speech was slurred. The time was around 4 in the morning. She did not have any significant right leg weakness white count there was right arm weakness and she eventually came to [facility] for an evaluation with her emergency room documented time of a rrival being 1418. She was well out of the window for tPA at that point. Her head CT scan identifie d no acute ischemic or hemorrhagic change; however, brain MRI done the following day ident ified multiple acute nonhemorrhagic cortical and subcortical white matter infarctions in the left cer ebral hemisphere. There was involvement of the central sulcus and left frontal lobe as well. ____ suggested left middle cerebral artery and thromboembolic events or left internal carotid. Her n naa MRA did show 60% to 70% stenosis of the left internal carotid artery junction at the bulb. Her h ead magnetic resonance angiogram was motion degraded. Pattern was consistent with shower emboli into multiple branches of the left frontal lobe with across the area of the central sulcus of the left pa rietal lobe and it should be noted that the stroke pattern is expected to impair the patient's speech given the location and right upper extremity. The distribution is felt to be less likely cardiac and more thromboembolic. Despite the MRI report of the patient's c linical condition seems much better than suggested, she did have some difficulty getting her words ou t, but very little slurred speech that she had recovered significantly at the time I evaluated her. Past Medical History: Hypertension and hypothyroidism. Surgical History: Cholecystectomy, hysterectomy, appendectomy. Allergies: PENICILLIN. Social History: No alcohol, tobacco, or IV drug use. Medications: Aspirin 81 mg daily, Lipitor 40 mg at bedtime, Plavix 75 mg daily, Lovenox 40 mg subcut aneously daily, folic acid 1 mg daily, Atrovent nebulizer, Zofran as needed, morphine as needed for p ain. Physical Examination: Vital Signs: Blood pressure 112/75, pulse 69, respiratory rate 18, temperature 97.8, oxygen saturati on 96% on room air. Weight 169 pounds. Height 5 feet 5 inches. BMI 28.2. General: Ms. Burnett is resting in bed. Her zmrisejt-fo-bwx is sitting in the room. She is in no ac pavel distress. HEENT: She is normocephalic, atraumatic. Her sclerae are anicteric. Her oropharynx is pink and karolina st. Neck: Supple. Chest: Clear. Heart: Regular. Abdomen: Soft. Extremities: No edema, cyanosis, or clubbing. Neurologic: She is alert and oriented to situation, place, and person. She follows all commands siria ropriately. She has slight difficulty with labial lingual and guttural sounds. However, very clearly. She does not have any significant evidence of expressive aphasia. This might be expec sofía. Cranial nerves, there is subtle decrease in the right nasolabial fold, but there are good excur sions bilaterally. No loss of sensation in the right face. Her cranial nerves are otherwise unremar kable. Motor examination, there is mild weakness in the right hand especially with finger and wrist extension. She has can tester strength 4/5 proximally, she is 5-/5 in the right upper extremity and the le ft side proximally and distally in the upper extremities, 5/5 in the lower extremity. She has no wea kness that is obvious on the right compared to left and those are 5/5. Sensory exam decreased to lig ht touch and temperature, right compared to left upper extremity. The face is intact as we noted. T he lower extremity equal sensory perception on the left and right side. Coordination is slightly off with some dysmetria noted in the right upper extremity and none in the right lower extremity. Her g ait is wide-based and slightly unsteady, although she was able to ambulate to the bathroom without an y difficulty. Laboratory Studies: Complete blood count with differential is normal. Coagulation panel shows INR 0 .96. Chemistries show chloride slightly elevated at 109 and BUN slightly elevated at 25, otherwise u nremarkable. Glucose is 109. Hemoglobin A1c 6.2. LDL cholesterol 124, HDL cholesterol 45, choleste rol/HDL ratio 4.67. TSH elevated at 7.08, free T4 of 1.13. Liver function studies unremarkable, but AST 14, ALT 21, alkaline phosphatase 42. Urinalysis shows trace esterase, 5 to 10 white blood cells , 10 to 20 squamous epithelial cells. Cultures unremarkable. Assessment: Ms. 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 However, she is doing very well in terms of her functional level de spite the MRI findings. She does have multiple risk factors for stroke and that there is 60% to 70% occlusion at the left internal carotid bulb. Plan: 1.Aspirin and Plavix as indicated. 2.She should be sent to interventionalist for potential angioplasty and stent placement of the carot id on the left. Referred to reduce her risk of stroke. 3.Permissive hypertension during this acute phase of stroke. 4.Continue with her statin. 5.Folic acid 1 mg daily. 6.She may follow up at Dr. Mendes's clinic 1 month after her discharge. NOLBERTO Voice ID: [id number] Report ID: [id number]
[2019-10-09] MEDS: IPRATROPIUM BROM 0.5MG/2.5ML NEB SCH ×4 (02:20→20:35)
[2019-10-09] MEDS: ASPIRIN 81 MG CHEWABLE TABLET PO SCH (08:40)
[2019-10-09] MEDS: FOLIC ACID 1 MG TABLET PO SCH (08:41)
[2019-10-09] MEDS: CLOPIDOGREL 75 MG TABLET PO SCH (08:41)
[2019-10-09] MEDS: ENOXAPARIN 40 MG/0.4 ML SQ SCH (08:41)
--- NOTE | 2019-10-09 10:00 | P.PN ---
Subjective Date of Service: 10/09/19 (Hospitalist) Primary Care Provider: PCP Chief Complaint: Stroke Subjective: Improving (Patient is improving. Tolerating a diet has some weakness on the right side particularly the right arm no new complaints) Review of Systems Unremarkable General: Weakness Physical Examination - Vital Signs Temperature: 97.1 F Blood Pressure: 147/70 Pulse: 65 Respirations: 17 Pulse Ox (%): 98 - Physical Exam General: Alert, Oriented x3, Other (Patient has mild expressive dysphasia) Respiratory: Clear to auscultation bilaterally Cardiovascular: No edema, Regular rate/rhythm - Studies Laboratory Data (last 24 hrs) 10/08/19 10:22: Triglycerides 204 H, Cholesterol 210 H, HDL Cholesterol 45, Cholesterol/HDL Ratio 4.67 10/08/19 10:22: Troponin I < 0.02 Assessment & Plan - Problems (Diagnosis) (1) CVA (cerebral vascular accident) Current Visit: Yes Status: Acute Plan: Patient admitted with a stroke clinically improving awaiting transfer to a rehab unit today no complaints she is eating has some expressive dysphasia chemistries and labs reviewed right arm seems to be more weak than the right leg vital signs stable continue to monitor eating a regular diet Qualifiers: CVA mechanism: thrombosis Precerebral and cerebral artery: carotid artery Laterality of affected vessel: left Qualified Code(s): I63.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
[2019-10-09] MEDS ORDERED: CLOPIDOGREL 75 MG TABLET PO SCH (10:05)
[2019-10-09] MEDS: ATORVASTATIN 40 MG TAB PO SCH (20:20)
[2019-10-10] MEDS: IPRATROPIUM BROM 0.5MG/2.5ML NEB SCH ×2 (01:25→08:00)
[2019-10-10] MEDS: ENOXAPARIN 40 MG/0.4 ML SQ SCH (09:00)
[2019-10-10] MEDS: FOLIC ACID 1 MG TABLET PO SCH (09:00)
[2019-10-10] MEDS: CLOPIDOGREL 75 MG TABLET PO SCH (09:00)
[2019-10-10] MEDS: ASPIRIN 81 MG CHEWABLE TABLET PO SCH (09:00)
--- NOTE | 2019-10-10 10:06 | P.PN ---
Subjective Date of Service: 10/10/19 Primary Care Provider: PCP Chief Complaint: Stroke Subjective: Improving (Patient is doing much better ambulating slight weakness of her right leg when I saw her patient was at the bedside saying combing her hair and conversing speech I would also improved) Review of Systems Unremarkable Physical Examination - Vital Signs Temperature: 97.4 F Blood Pressure: 161/72 Pulse: 65 Respirations: 20 Pulse Ox (%): 97 - Physical Exam General: Alert, In no apparent distress, Oriented x3 Respiratory: Clear to auscultation bilaterally Gastrointestinal: Normal bowel sounds Neurological: Other (Slight weakness of her right leg and her right arm slightly dysphasic facial weakness tongue protrusion is normal) - Studies Microbiology Data (last 24 hrs): 10/08/19 02:20 Clean Catch Urine [place] Count - Final >100,000 CFU/ML. 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
[2019-10-10] MEDS: LOSARTAN POTASSIUM 50 MG TABLET PO SCH (11:53)
[2019-10-10] MEDS: SMZ./TMP. 800/160 MG TABLET PO SCH (20:51)
[2019-10-10] MEDS: ATORVASTATIN 40 MG TAB PO SCH (20:51)
[2019-10-11] MEDS: LOSARTAN POTASSIUM 50 MG TABLET PO SCH (08:43)
[2019-10-11] MEDS: ENOXAPARIN 40 MG/0.4 ML SQ SCH (08:43)
[2019-10-11] MEDS: FOLIC ACID 1 MG TABLET PO SCH (08:44)
[2019-10-11] MEDS: SMZ./TMP. 800/160 MG TABLET PO SCH ×2 (08:44→20:48)
[2019-10-11] MEDS: ASPIRIN 81 MG CHEWABLE TABLET PO SCH (08:44)
[2019-10-11] MEDS: CLOPIDOGREL 75 MG TABLET PO SCH (08:44)
[2019-10-11] MEDS: ATORVASTATIN 40 MG TAB PO SCH (20:48)
[2019-10-12] MEDS: FOLIC ACID 1 MG TABLET PO SCH (08:13)
[2019-10-12] MEDS: ENOXAPARIN 40 MG/0.4 ML SQ SCH (08:13)
[2019-10-12] MEDS: ASPIRIN 81 MG CHEWABLE TABLET PO SCH (08:13)
[2019-10-12] MEDS: LOSARTAN POTASSIUM 50 MG TABLET PO SCH (08:13)
[2019-10-12] MEDS: CLOPIDOGREL 75 MG TABLET PO SCH (08:13)
[2019-10-12] MEDS: SMZ./TMP. 800/160 MG TABLET PO SCH (08:13)
[2019-10-12 10:12] VITALS: O2SAT 97
[2019-10-12 13:21] VITALS: BP 152/53; TEMP 97
--- NOTE | 2019-10-25 10:47 | PN ---
Date of Progress Note: 10/13/2019 Subjective: Patient seems to be doing considerably better today as far as the speech is concerned. She still has some weakness on the right arm. Discussion of radiology in regard to the possible narr owing on the left carotid, this will be followed up with a CT angio as an outpatient. She is to cont inue on the Plavix, aspirin and her statin, which she had not been taking and probably be discharged in a.m. HR/MODL Voice ID: [id number] Report ID: [id number]
== END 2019-10-12 16:17 | disposition home health service (06) | DRG 65 ==
LOC: ER 14:16 → ERHOLD 10-08 00:59 → 4TH 10-08 01:43 → OBSVTOIN 10-08 13:05
PROVIDERS: ADMIT Internal Medicine; ATTEND Family Medicine
DX: I63.032 Cerebral infarction due to thrombosis of left carotid artery (principal); N39.0 Urinary tract infection, site not specified; R47.81 Slurred speech; R29.702 NIHSS score 2; B96.20 Unspecified Escherichia coli [E. coli] as the cause of diseases classified elsewhere; I10 Essential (primary) hypertension; E03.9 Hypothyroidism, unspecified; E78.5 Hyperlipidemia, unspecified
CPT/HCPCS: 36415; 70450; 70496; 70544; 70549; 70553; 71045; 80048; 80053; 80061; 81003; 81015; 82553; 83036; 83735; 84439; 84443; 84484; 85025; 85610; 85730; 87077; 87086; 87088; 87186; 92610; 93005; 93306; 94640; 96374; 97110; 97112; 97116; 97161; 97530; 99285; A9577; G0378; J1650; J2270; Q9967

== ENCOUNTER 2019-10-13 19:19 | Emergency (ER) | payer OTHER ==
--- OUTSIDE RECORDS SUMMARY | 2019-10-13 19:22 | XMS REPORT ---
:1935 Author Organization [facility] Address [address] [place] [address] Dr. Turk [address] [place] [id number] Care Team Providers Name Role Phone ESTHELA FALCON Unavailable Unavailable Problems This patient has no known problems. Allergies, Adverse Reactions, Alerts This patient has no known allergies or adverse reactions. Medications This patient has no known medications. Results Test Description Test Time Test Comments Text Results Atomic Results Result Comments RPR 2018-08-23 03:27:00 Test Item Value Reference Range Comments RPR SCREEN (BEAKER) (test jttk=832) Nonreactive Nonreactive T4, [id number] 07:55:00 Test Item Value Reference Range Comments FREE T4 (BEAKER) (test tdfi=586) 1.00 ng/dL 0.70-1.48 TSH/FREE T4 IF [id number] 06:54:00 Test Item Value Reference Range Comments THYROID STIMULATING HORMONE (BEAKER) (test 6.27 uIU/mL 0.35-4.94 xgek=432) VITAMIN B12 AND [id number] 06:31:00 Test Item Value Reference Range Comments VITAMIN B12 (BEAKER) (test nvul=589) 210 pg/mL 213-816 FOLATE (BEAKER) (test tcxg=541) 13.9 ng/mL >=7.0 LIPID [id number] 05:58:00 Test Item Value Reference Range Comments TRIGLYCERIDES (BEAKER) (test karg=585) 152 mg/dL CHOLESTEROL (BEAKER) (test tbvu=188) 224 mg/dL HDL CHOLESTEROL (BEAKER) (test gqft=339) 36 mg/dL LDL CHOLESTEROL CALCULATED (BEAKER) (test 158 mg/dL fqsk=153) Triglyceride Reference Range: Low Risk <150 Borderline 150- 199 High Risk 200-499 Very High Risk >=500Cholesterol Reference Range: Low Risk <200 Borderline 200-239 High Risk > 240HDL Cholesterol Reference Range: Low Risk >=60 High Risk <40LDL Cholesterol Reference Range: Optimal <100 Near Optimal 100-129 Borderline 130-159 High 160-189 Very High >=190 FastingBASIC METABOLIC [id number] 05:58:00 Test Item Value Reference Range Comments SODIUM (BEAKER) (test 139 meq/L 136-145 isdt=201) POTASSIUM (BEAKER) (test 3.7 meq/L 3.5-5.1 mbij=956) CHLORIDE (BEAKER) (test 107 meq/L 98-107 tdlk=453) CO2 (BEAKER) (test 22 meq/L 22-29 hvrz=797) BLOOD UREA NITROGEN 21 mg/dL 7-21 (BEAKER) (test fgha=169) CREATININE (BEAKER) (test 0.77 mg/dL 0.57-1.25 rcyy=217) GLUCOSE RANDOM (BEAKER) 147 mg/dL 70-105 (test kbmf=455) CALCIUM (BEAKER) (test 9.9 mg/dL 8.4-10.2 yhxr=063) EGFR (BEAKER) (test 72 mL/min/1.73 sq m ESTIMATED GFR IS NOT xtkp=4592) ACCURATE CREATININE CLEARANCE IN PREDICTING GLOMERULAR FILTRATION RATE. ESTIMATED GFR IS NOT APPLICABLE FOR DIALYSIS PATIENTS. FastingCBC W/PLT COUNT & AUTO [id number] 05:31:00 Test Item Value Reference Range Comments WHITE BLOOD CELL COUNT (BEAKER) (test jzzr=787) 8.4 K/ L 3.5-10.5 RED BLOOD CELL COUNT (BEAKER) (test tofe=373) 4.64 M/ L 3.93-5.22 HEMOGLOBIN (BEAKER) (test ygfe=742) 13.5 GM/DL 11.2-15.7 HEMATOCRIT (BEAKER) (test zidt=925) 41.3 % 34.1-44.9 MEAN CORPUSCULAR VOLUME (BEAKER) (test ifdj=879) 89.0 fL 79.4-94.8 MEAN CORPUSCULAR HEMOGLOBIN (BEAKER) (test 29.1 pg 25.6-32.2 vavz=512) MEAN CORPUSCULAR HEMOGLOBIN CONC (BEAKER) (test 32.7 GM/DL 32.2-35.5 byyf=569) RED CELL DISTRIBUTION WIDTH (BEAKER) (test 13.7 % 11.7-14.4 ebrq=368) PLATELET COUNT (BEAKER) (test idhr=357) 222 K/CU MM 150-450 MEAN PLATELET VOLUME (BEAKER) (test qbrv=157) 10.9 fL 9.4-12.3 NUCLEATED RED BLOOD CELLS (BEAKER) (test 0 /100 WBC 0-0 foyy=507) NEUTROPHILS RELATIVE PERCENT (BEAKER) (test 72 % fpjf=252) LYMPHOCYTES RELATIVE PERCENT (BEAKER) (test 17 % eloe=126) MONOCYTES RELATIVE PERCENT (BEAKER) (test 8 % uobn=752) EOSINOPHILS RELATIVE PERCENT (BEAKER) (test 3 % fmgs=812) BASOPHILS RELATIVE PERCENT (BEAKER) (test 1 % pxyc=376) NEUTROPHILS ABSOLUTE COUNT (BEAKER) (test 6.00 K/ L 1.56-6.13 uafj=380) LYMPHOCYTES ABSOLUTE COUNT (BEAKER) (test 1.40 K/ L 1.18-3.74 gdwh=381) MONOCYTES ABSOLUTE COUNT (BEAKER) (test 0.64 K/ L 0.24-0.36 zryi=766) EOSINOPHILS ABSOLUTE COUNT (BEAKER) (test 0.23 K/ L 0.04-0.36 zwnl=270) BASOPHILS ABSOLUTE COUNT (BEAKER) (test 0.04 K/ L 0.01-0.08 jsnx=367) IMMATURE GRANULOCYTES-RELATIVE PERCENT (BEAKER) 1 % 0-1 (test urvj=0400) MR, BRAIN, WITHOUT [id number] 23:12:00Reason for exam:->StrokeWhat is the patient's sedation requirement?->No SedationIs the patientclaustrophobic?->NoFINAL REPORT Exam: MRI brain without contrast. Comparison: None. Clinical indication: Stroke. Right side weakness Technique: Multiplanar multi sequential MR imaging of the brainwas performed without the administration of intravenous contrast. Findings : There are uris-py-sbzabfxg white matter microvascular ischemic changes. There are [...] junction is normal.Impression:Small acute left frontoparietal infarcts. Wygv-ew-qccvgtjt white matter microvascular ischemic changes. No acute intracranial hemorrhage or mass effect. Findings discussed with Dr Gutierrez [id number]/. Signed: Anne Ignacio Verified Date/Time: 08/19/2018 23:12:35 Reading Location: [address] Body Reading Room 11:12 PMMR, MRA , NECK, WITHOUT IV [id number] 22:59:00FINAL REPORT MRA head and neck without [...] is antegrade in both vertebral arteries. MRA [place]: There is irregularity of the intracranial vasculature in keeping with atherosclerosis. There is a right [employer]. There is no vessel occlusion, flow-limitingstenosis, or aneurysm in the intracranial carotid or vertebrobasilar arterial circulations. IMPRESSION: MRA neck: Mild stenosis of the bilateral cervical internal ICAs. No hemodynamically significant stenosis by NASCET criteria.MRA head: No vessel occlusion or flow-limiting stenosis. Signed: Anne Ignacio Verified Date/Time: 08/19/2018 22:59:51 Reading Location: [address] Body Reading Room MR, MRA, BRAIN, WITHOUT [id number] 22:59:00Reason for exam:->StrokeWhat is the patient's [...] is antegrade in both vertebral arteries. MRA [place]: There is irregularity of the intracranial vasculature in keeping with atherosclerosis. There is a right [employer]. There is no vessel occlusion, flow-limitingstenosis, or aneurysm in the intracranial carotid or vertebrobasilar arterial circulations. IMPRESSION: MRA neck: Mild stenosis of the bilateral cervical internal ICAs. No hemodynamically significant stenosis by NASCET criteria.MRA head: No vessel occlusion or flow-limiting stenosis. Signed: Anne Ignacio MDReport Verified Date/Time: 08/19/2018 22:59:51 Reading Location: [address] Body Reading Room HEMOGLOBIN [id number] 15:02:00 Test Item Value Reference Range Comments HEMOGLOBIN A1C (BEAKER) (test szcg=962) 5.7 % 4.3-6.1 BASIC METABOLIC [id number] 12:44:00 Test Item Value Reference Range Comments SODIUM (BEAKER) (test 141 meq/L 136-145 zpmb=086) POTASSIUM (BEAKER) (test 4.5 meq/L 3.5-5.1 lplh=602) CHLORIDE (BEAKER) (test 106 meq/L 98-107 grek=360) CO2 (BEAKER) (test 24 meq/L 22-29 ssby=857) BLOOD UREA NITROGEN 15 mg/dL 7-21 (BEAKER) (test znne=177) CREATININE (BEAKER) (test 0.79 mg/dL 0.57-1.25 zdtg=413) GLUCOSE RANDOM (BEAKER) 99 mg/dL 70-105 (test xlst=846) CALCIUM (BEAKER) (test 9.7 mg/dL 8.4-10.2 zqui=271) EGFR (BEAKER) (test 70 mL/min/1.73 sq m ESTIMATED GFR IS NOT cwmm=9180) ACCURATE CREATININE CLEARANCE IN PREDICTING GLOMERULAR FILTRATION RATE. ESTIMATED GFR IS NOT APPLICABLE FOR DIALYSIS PATIENTS. C-REACTIVE [id number] 12:44:00 Test Item Value Reference Range Comments C-REACTIVE PROTEIN (BEAKER) (test qmsy=951) 0.23 mg/dL 0.00-0.50 CBC W/PLT COUNT & AUTO [id number] 12:24:00 Test Item Value Reference Range Comments WHITE BLOOD CELL COUNT (BEAKER) (test dltl=892) 8.1 K/ L 3.5-10.5 RED BLOOD CELL COUNT (BEAKER) (test titu=830) 5.04 M/ L 3.93-5.22 HEMOGLOBIN (BEAKER) (test moqo=396) 14.7 GM/DL 11.2-15.7 HEMATOCRIT (BEAKER) (test ynch=493) 46.0 % 34.1-44.9 MEAN CORPUSCULAR VOLUME (BEAKER) (test qtqa=138) 91.3 fL 79.4-94.8 MEAN CORPUSCULAR HEMOGLOBIN (BEAKER) (test 29.2 pg 25.6-32.2 llzf=946) MEAN CORPUSCULAR HEMOGLOBIN CONC (BEAKER) (test 32.0 GM/DL 32.2-35.5 jptn=179) RED CELL DISTRIBUTION WIDTH (BEAKER) (test 13.7 % 11.7-14.4 qnje=864) PLATELET COUNT (BEAKER) (test vhwh=366) 234 K/CU MM 150-450 MEAN PLATELET VOLUME (BEAKER) (test rstm=129) 11.3 fL 9.4-12.3 NUCLEATED RED BLOOD CELLS (BEAKER) (test 0 /100 WBC 0-0 nuhh=535) NEUTROPHILS RELATIVE PERCENT (BEAKER) (test 67 % pgdc=901) LYMPHOCYTES RELATIVE PERCENT (BEAKER) (test 19 % nyng=499) MONOCYTES RELATIVE PERCENT (BEAKER) (test 8 % qjyy=094) EOSINOPHILS RELATIVE PERCENT (BEAKER) (test 5 % hcrw=088) BASOPHILS RELATIVE PERCENT (BEAKER) (test 1 % unqd=700) NEUTROPHILS ABSOLUTE COUNT (BEAKER) (test 5.42 K/ L 1.56-6.13 zgqv=267) LYMPHOCYTES ABSOLUTE COUNT (BEAKER) (test 1.52 K/ L 1.18-3.74 yryu=171) MONOCYTES ABSOLUTE COUNT (BEAKER) (test 0.66 K/ L 0.24-0.36 vkyo=669) EOSINOPHILS ABSOLUTE COUNT (BEAKER) (test 0.39 K/ L 0.04-0.36 fwzs=762) BASOPHILS ABSOLUTE COUNT (BEAKER) (test 0.05 K/ L 0.01-0.08 polt=485) IMMATURE GRANULOCYTES-RELATIVE PERCENT (BEAKER) 1 % 0-1 (test nnhk=7764)
[2019-10-13] MEDS ORDERED: NA CHLORIDE 0.9% 0 ML ONE (19:50)
[2019-10-13 20:39] LABS: Absolute Lymphocytes (CBC) 1.9 K/uL (0.7-4.9); Basophils % 0.6 % (0-1.3); Hematocrit 32.7 % (36.0-45.0); Lymphocytes % 13.4 % (15.3-44.8); MPV 10.3 fL (7.6-11.3); RBC Red Blood Cell Count 3.63 M/uL (3.86-4.86)
[2019-10-13 20:48] LABS: ALT/SGPT 28 U/L (12-78); AST/SGOT 19 U/L (15-37); Albumin 3.4 g/dL (3.4-5.0); Alkaline Phosphatase 34 U/L (45-117); BUN Blood Urea Nitrogen 54 mg/dL (7-18); Bicarbonate 25 mmol/L (21-32); Bilirubin Direct < 0.1 mg/dL (0-0.2); Bilirubin Total 0.2 mg/dL (0.2-1.0); Glucose Level 139 mg/dL (74-106); Lipase 82 U/L (73-393); Potassium 4.7 mmol/L (3.5-5.1); Protein, Total 6.6 g/dL (6.4-8.2); Sodium Level 142 mmol/L (136-145)
[2019-10-13 21:05] LABS: Blood Morphology Comment NOT SEEN (NOT SEEN); Platelet Estimate ADEQ; Urine White Blood Cell Casts OK
--- NOTE | 2019-10-13 22:23 | ER ---
Nurse's Notes [facility] Name: Gaby Burnett Age: 83 yrs Sex: Female : 1935 Arrival Date: 10/13/2019 Time: 19:20 Bed 6 Private MD: Diagnosis: Other viral enteritis;Dehydration Presentation: 10/13 19:22 Presenting complaint: EMS states: Patient was discharge from the hospital few days ago ao and was treated of stroke like symptoms. Tonight she was found seating on a bedside commode with loose dark loose stool. Pt states she doesn't feel right. Pt is taking antibiotic and had medicine for constipation and diarrhea as well. Transition of care: patient was not received from another setting of care. Onset of symptoms is unknown. Risk Assessment: Do you want to hurt yourself or someone else? Patient reports no desire to harm self or others. Initial Sepsis Screen: Does the patient meet any 2 criteria? No. Patient's initial sepsis screen is negative. Does the patient have a suspected source of infection? No. Patient's initial sepsis screen is negative. Care prior to arrival: None. 19:22 Method Of Arrival: EMS: [facility] ao 19:22 Acuity: RYANNE 3 ao Historical: - Allergies: 19:29 PENICILLINS; ao - Home Meds: 19:29 high blood pressure medicine [Active]; levothyroxine oral [Active]; antibiotic [Active];ao - PMHx: 19:29 Hypertension; Hypothyroidism; ao - PSHx: 19:29 None; ao - Immunization history:: Adult Immunizations up to date. - Social history:: Smoking status: unknown. - Ebola Screening: : Patient negative for fever greater than or equal to 101.5 degrees Fahrenheit, and additional compatible Ebola Virus Disease symptoms Patient denies exposure to infectious person Patient denies travel to an Ebola-affected area in the 21 days before illness onset. Screenin:32 Abuse screen: Denies threats or abuse. Denies injuries from another. Nutritional ao screening: No deficits noted. Tuberculosis screening: No symptoms or risk factors identified. Fall Risk None identified. Assessment: 19:30 General: Appears in no apparent distress. uncomfortable, obese, unkempt, Behavior is ao drowsy, inappropriate for age, listless. Pain: Unable to use pain scale. FLACC scale score is 0 out of 10. Neuro: Level of Consciousness is awake, alert, obeys commands, Oriented to person, place, time, situation, Appropriate for age Moves all extremities. Full function Speech is normal, Facial symmetry appears normal. Cardiovascular: Denies chest pain, shortness of breath, Heart tones S1 S2 Capillary refill is > 3 seconds Patient's skin is warm and dry. Respiratory: Airway is patent Respiratory effort is even, unlabored, Respiratory pattern is regular, symmetrical. GI: Abdomen is round obese. : No signs and/or symptoms were reported regarding the genitourinary system. EENT: Derm: Skin is intact, Skin is pink, warm \T\ dry. Skin temperature is warm. Musculoskeletal: Circulation, motion, and sensation intact. Range of motion:. 20:41 Reassessment: Patient appears in no apparent distress at this time. Waiting on lab ao word. Family at bedside. 21:43 Reassessment: Patient appears in no apparent distress at this time. Patient and/or ao family updated on plan of care and expected duration. Pain level reassessed. Family at bedside. Updated in PCP. 22:46 Reassessment: DC instruction given to son and daughter. Family gree with POC and to ao follow up with PCP. Vital Signs: 19:29 BP 102 / 48; Pulse 78; Resp 17; Temp 98.2(O); Pulse Ox 94% on R/A; Weight 90.72 kg; ao Height 5 ft. 5 in. (165.10 cm); 20:41 BP 97 / 84; Pulse 84; Resp 18; Pulse Ox 94% ; ao 21:30 BP 108 / 62; Pulse 73; Resp 18; Pulse Ox 100% on R/A; lp1 21:43 BP 108 / 62; Pulse 75; Resp 18; Pulse Ox 94% on R/A; Pain 0/10; ao 22:46 BP 100 / 63; Pulse 75; Resp 16; Pulse Ox 98% on R/A; ao 19:29 Body Mass Index 33.28 (90.72 kg, 165.10 cm) ao ED Course: 19:20 Patient arrived in ED. cf2 19:22 Anant Pan RN is Primary Nurse. ao 19:23 Marek Marlow MD is Attending Physician. tw4 19:28 Triage completed. ao 19:30 Arm band placed on right wrist. Patient placed in an exam room, on a stretcher, on ao youth nutritional monitor, on pulse oximetry, Patient notified of wait time. 19:32 Patient has correct armband on for positive identification. Placed in gown. Call light ao in reach. Side rails up X 1. court monitor on. Pulse ox on. NIBP on. 20:17 Maintain EMS IV. Dressing intact. Good blood return noted. Site clean \T\ dry. Gauge \T\ ao site: 20 G R FA. 22:32 Assisted to bedside commode. Cleaned of incontinence. mw2 22:45 No provider procedures requiring assistance completed. IV discontinued, intact, ao bleeding controlled, No redness/swelling at site. Pressure dressing applied. Administered Medications: 19:50 Not Given (1L NS infusing from EMS): NS 0.9% 1000 ml IV at 1 bolus Per protocol; 1000 lp1 mL bolus 22:45 Drug: LoMOTIL 1 tabs Route: PO; ao 22:45 Follow up: Response: Medication administered at discharge. ao Outcome: 22:22 Discharge ordered by MD. [email or web address] 22:46 Discharged to home ambulatory. ao 22:46 Condition: stable 22:46 Discharge instructions given to patient, Instructed on discharge instructions, follow up and referral plans. Demonstrated understanding of instructions, follow-up care, medications, Prescriptions given X 2. 22:51 Patient left the ED. ao Signatures: Ynes Bates, RN RN lp1 Anant Pan RN RN ao Wadley, Terrence, MD MD tw4 Shelli Jordan mw2 Yisel Goldman 2
--- NOTE | 2019-10-13 22:23 | EDPHYS ---
Physician Documentation [facility] Name: Gaby Burnett Age: 83 yrs Sex: Female : 1935 Arrival Date: 10/13/2019 Time: 19:20 Bed 6 Private MD: ED Physician Marek Marlow HPI: 10/14 05:58 This 83 yrs old Female presents to ER via EMS with complaints of NVD. tw4 05:58 The patient presents to the emergency department with nausea, vomiting, diarrhea, that tw4 is continuous, 15 times since the onset of symptoms. 05:59 Onset: The symptoms/episode began/occurred today. Possible causes: unknown, tw4 antibiotics, penicillin. The symptoms are aggravated by nothing. The symptoms are alleviated by nothing. Associated signs and symptoms: Pertinent positives: abdominal pain, Pertinent negatives: anorexia, belching, constipation, dysuria. Severity of symptoms: At their worst the symptoms were moderate in the emergency department the symptoms are unchanged. The patient has not experienced similar symptoms in the past. Historical: - Allergies: 10/13 19:29 PENICILLINS; ao - Home Meds: 19:29 high blood pressure medicine [Active]; levothyroxine oral [Active]; antibiotic [Active];ao - PMHx: 19:29 Hypertension; Hypothyroidism; ao - PSHx: 19:29 None; ao - Immunization history:: Adult Immunizations up to date. - Social history:: Smoking status: unknown. - Ebola Screening: : Patient negative for fever greater than or equal to 101.5 degrees Fahrenheit, and additional compatible Ebola Virus Disease symptoms Patient denies exposure to infectious person Patient denies travel to an Ebola-affected area in the 21 days before illness onset. ROS: 10/14 05:59 Constitutional: Negative for fever, chills, and weight loss, Eyes: Negative for injury, tw4 pain, redness, and discharge, Cardiovascular: Negative for chest pain, palpitations, and edema, Respiratory: Negative for shortness of breath, cough, wheezing, and pleuritic chest pain. Back: Negative for injury and pain, MS/Extremity: Negative for injury and deformity, Skin: Negative for injury, rash, and discoloration, Neuro: Negative for headache, weakness, numbness, tingling, and seizure. Abdomen/GI: Positive for nausea and vomiting, nausea, vomiting, and diarrhea, nausea, vomiting, diarrhea, abdominal cramps, Negative for black/tarry stool, rectal pain, rectal bleeding, bowel incontinence, flatulence. Exam: 05:59 Constitutional: This is a well developed, well nourished patient who is awake, alert, tw4 and in no acute distress. Head/Face: Normocephalic, atraumatic. Chest/axilla: Normal chest wall appearance and motion. Nontender with no deformity. No lesions are appreciated. Cardiovascular: Regular rate and rhythm with a normal S1 and S2. No gallops, murmurs, or rubs. Normal PMI, no JVD. No pulse deficits. Respiratory: Lungs have equal breath sounds bilaterally, clear to auscultation and percussion. No rales, rhonchi or wheezes noted. No increased work of breathing, no retractions or nasal flaring. 05:59 Back: No spinal tenderness. No costovertebral tenderness. Full range of motion. MS/ Extremity: Pulses equal, no cyanosis. Neurovascular intact. Full, normal range of motion. Neuro: Awake and alert, GCS 15, oriented to person, place, time, and situation. Cranial nerves II-XII grossly intact. Motor strength 5/5 in all extremities. Sensory grossly intact. Cerebellar exam normal. Normal gait. 05:59 Abdomen/GI: Inspection: abdomen appears normal, Bowel sounds: diminished, in all quadrants, Palpation: mild abdominal tenderness, in the epigastric area. Vital Signs: 10/13 19:29 BP 102 / 48; Pulse 78; Resp 17; Temp 98.2(O); Pulse Ox 94% on R/A; Weight 90.72 kg; ao Height 5 ft. 5 in. (165.10 cm); 20:41 BP 97 / 84; Pulse 84; Resp 18; Pulse Ox 94% ; ao 21:30 BP 108 / 62; Pulse 73; Resp 18; Pulse Ox 100% on R/A; lp1 21:43 BP 108 / 62; Pulse 75; Resp 18; Pulse Ox 94% on R/A; Pain 0/10; ao 22:46 BP 100 / 63; Pulse 75; Resp 16; Pulse Ox 98% on R/A; ao 19:29 Body Mass Index 33.28 (90.72 kg, 165.10 cm) ao MDM: 19:39 Patient medically screened. 10/14 05:59 Differential diagnosis: Nonspecific abd pain, gastritis, viral gastroenteritis, tw4 gastroenteritis. Data reviewed: vital signs, nurses notes. Counseling: I had a detailed discussion with the patient and/or guardian regarding: the historical points, exam findings, and any diagnostic results supporting the discharge/admit diagnosis, lab results. Medication response: Zofran relieved the patient's nausea. Response to treatment: the patient's symptoms have markedly improved after treatment, and as a result, I will discharge patient. Special discussion: Based on the patient's Hx, exam, and Dx evaluation, there is no indication for emergent surgery or inpatient Tx. It is understood by the patient/guardian that if the Sx's persist or worsen they need to return immediately for re-evaluation. I discussed with the patient/guardian in detail that at this point there is no indication for admission to the hospital. It is understood, however, that if the symptoms persist or worsen the patient needs to return immediately for re-evaluation. 10/13 19:40 Order name: Basic Metabolic Panel; Complete Time: 21:17 4 10/13 21:18 Interpretation: Normal except: CL 111; BUN 54; GLUC 139; GFR 44. tw10/13 19:40 Order name: CBC with Diff; Complete Time: 21:17 4 10/13 21:18 Interpretation: Normal except: WBC 13.9; RBC 3.63; HGB 11.1; HCT 32.7; PLT 151; LYM% tw4 13.4; MECHELLE% 80.5; NEUT A 11.2. 10/13 19:40 Order name: Creatinine for Radiology; Complete Time: 21:17 4 10/13 21:18 Interpretation: Normal except: GFR 44. 10/13 19:40 Order name: Hepatic Function; Complete Time: 21:17 4 10/13 21:18 Interpretation: Normal except: ALK 34. 10/13 19:40 Order name: Lipase; Complete Time: 21:17 4 10/13 21:18 Interpretation: Within normal limits: LIP 82. 10/13 19:40 Order name: IV Saline Lock; Complete Time: 20:41 10/13 19:40 Order name: Labs collected and sent; Complete Time: 20:41 4 10/13 21:05 Order name: CBC Smear Scan; Complete Time: 21:17 EDMS Administered Medications: 10/13 19:50 Not Given (1L NS infusing from EMS): NS 0.9% 1000 ml IV at 1 bolus Per protocol; 1000 lp1 mL bolus 22:45 Drug: LoMOTIL 1 tabs Route: PO; ao 22:45 Follow up: Response: Medication administered at discharge. ao Disposition: 10/13/19 22:22 Discharged to Home. Impression: Other viral enteritis, Dehydration. - Condition is Stable. - Discharge Instructions: Food Choices to Help Relieve Diarrhea, Adult, Dehydration, Elderly, Diarrhea, Adult, Rehydration, Elderly. - Prescriptions for Levsin 0.125 mg Oral Tablet - take 1 tablet by ORAL route every 6 hours; 40 tablet. Lomotil 2.5- 0.025 mg Oral Tablet - take 2 tablet by ORAL route once daily As needed; 20 tablet. - Medication Reconciliation Form, Thank You Letter, Antibiotic Education, Prescription Opioid Use form. - Follow up: Private Physician; When: Upon discharge from the Emergency Department; Reason: Recheck today's complaints, Continuance of care. - Problem is new. - Symptoms have improved. Signatures: Dispatcher [employer] [facility] Anant Pan RN RN Marek Del Cid MD MD tw4 Ynes Bates RN lp1 Corrections: (The following items were deleted from the chart) 19:51 19:43 UA MICROSCOPIC+U.LAB.BRZ ordered. [facility] 19:51 19:43 Urine Culture+BA.LAB.BRZ ordered. [facility] 22:51 22:22 10/13/2019 22:22 Discharged to Home. Impression: Other viral enteritis; ao Dehydration. Condition is Stable. Forms are Medication Reconciliation Form, Thank You Letter, Antibiotic Education, Prescription Opioid Use. Follow up: Private Physician; When: Upon discharge from the Emergency Department; Reason: Recheck today's complaints, Continuance of care. Problem is new. Symptoms have improved. tw4
[2019-10-13] MEDS ORDERED: DIPHENOX/ATROP SULF 1 TAB PO ONE (22:43)
[2019-10-14 02:12] VITALS: TEMP 98.2
[2019-10-14 02:18] VITALS: BP 100/63; O2SAT 98
== END 2019-10-13 22:51 | disposition home or self-care (01) ==
LOC: ER 19:19
DX: B34.9 Viral infection, unspecified (principal); E86.0 Dehydration; Z88.0 Allergy status to penicillin; I10 Essential (primary) hypertension; E03.9 Hypothyroidism, unspecified
CPT/HCPCS: 36415; 80048; 80076; 83690; 85025; 99284; J7030

== ENCOUNTER 2021-06-24 12:02 | Emergency (ER) | payer MEDICARE ==
--- OUTSIDE RECORDS SUMMARY | 2021-06-24 12:06 | XMS REPORT | Continuity of Care Document ---
:1935 Author Organization [facility] t Address [address] [place] [address] [address]. [address] [place] [address] Care Team Providers Name Role Phone Hilary Douglas MD Primary Care Physician HILARY DOUGLAS Attending Clinician Unavailable Hilary Douglas MD Attending Clinician Leidy Miranda DO Attending Clinician Peter Mcmanus MD Attending Clinician EZEKIEL Attending Clinician Unavailable HILARY DOUGLAS Admitting Clinician Unavailable EZEKIEL Admitting Clinician Unavailable Payers Payer Name Policy Type Policy Effective Date Expiration Date Sour ce Number [facility] [id number] [facility] - MEDICARE MGD 00:00:00 - Medical CAREAARP/MEDICARE Center [id number] 2020-Present Problems Condition Condition Condition Status Onset Resolution Last Treating Co mments Source Name Details Category Date Date Treatment Clinician Date Pneumonia Pneumonia Disease Active [facility]11 [facility] - gram-negat gram-negat 00:00: Me dical erinn erinn 00 Center bacteria bacteria Upper GI Upper GI Disease Active Overview: [facility] bleed bleed 3-11 Added [facility] - 00:00: automatic Medical 00 ally from Center request for surgery [id number] Hypertensi Hypertensi Disease Active 2017-[address] on, on, 0-25 [facility] - unspecifie unspecifie 00:00: Me dical d type d type 00 [place] Hypothyroi Hypothyroi Disease Active 2017-[address] d d 0-25 [facility] - 00:00: Medical 00 Center Low Low Disease Active 2017-10 St vitamin vitamin 0-25 [facility] - B12 level B12 level 00:00: Medi laquita 00 [place] 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 History of Cigarette Smoker [facility] - tobacco use Medical Cente r Alcohol intake 2021-01-09 2021-01-[address] [facility] es - 00:00:00 00:00:00 non-drinker of Medical Ce nter alcohol (finding) Tobacco use and 2021-01-09 2021-01-09 Never used [facility] - exposure 00:00:00 00:00:00 [facility] Tobacco Comment 2018-08-19 2018-08-[address] [facility] - 00:00:00 00:00:00 early [facility]s [facility] Center Smoking Status Start Date Stop Date Source Former smoker 2021-01-09 00:00:00 2021-01-09 00:00:00 [facility] Medications Ordered Filled Start Stop Current Ordering Indication Dosage Frequency Signature Comments Components Source Medication Medication Date Date Medication? Clinician (SIG) Name Name losartan Yes 100mg QD Take [address] (COZAAR) 3-15 mg by [facility] - 100 MG 14:14: mouth Medical tablet 54 daily. [place] acetaminoph Yes 500mg Take [address] en 3-15 mg by [facility] - (TYLENOL) 14:14: mouth Medical 500 MG 54 every 6 Center tablet (six) hours as needed for Pain. 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 Center tablet albuterol No 2{puff} Inhale [address] HFA 3-15 -15 puffs by [facility] - (VENTOLIN 00:00: 23:59 mouth via Me dical HFA) 90 00 :00 inhaler Center mcg/actuati every 6 on inhaler (six) hours as needed for Wheezing. atorvastati 2020- No 40mg QD Take [address] n (LIPITOR) 3-15 -14 tablet (40 L ukes - 40 MG 00:00: 23:59 mg total) Medica l tablet 00 :00 by mouth Center nightly for 30 days. ferrous No 325mg Q.5D Take [address] sulfate 325 -08 02-14 tablet [facility] - (65 FE) MG 00:00: 23:59 (325 mg Med ical tablet 00 :00 total) by Center mouth 2 (two) times daily for 30 days. pantoprazol No 40mg QD Take [address] e 3-15 -14 tablet (40 [facility] - (PROTONIX) 00:00: 23:59 mg total) M edical 40 MG 00 :00 by mouth Center tablet daily for 30 days. docusate No 100mg Q.5D Take 1 [facility] sodium 3-15 -25 capsule [facility] - (COLACE) 00:00: 23:59 (100 mg Medic al 100 MG 00 :00 total) by Center capsule mouth 2 (two) times daily for 10 days. Vital Signs Vital Name Observation Time Observation Value Comments Source Systolic blood 2021-01-08 13:45:00 169 mm[Hg] [facility] pressure Medical [place] Diastolic blood 2021-01-08 13:45:00 70 mm[Hg] [facility] Heart rate 2021-01-08 13:45:00 76 /min [facility] Respiratory rate 2021-01-08 13:45:00 18 /min [facility] Body temperature 2021-01-08 12:00:00 36.17 Samantha [facility] Oxygen saturation in 2021-01-08 12:00:00 97 /min [facility] Arterial blood by Medical Ce nter Pulse oximetry Procedures Procedure Date / Time Performed Performing Clinician [facility] e REPORT OF PROCEDURE - 2021-02-07 08:00:[address] [facility] - ENDOSCOPY URL [facility] XR CHEST 1 VIEW PORTABLE 2021-01-08 05:50:[address] [facility] / BEDSIDE [facility] SPUTUM CULTURE + GRAM 2021-01-08 05:15:00 Kareem Miranda [facility] CBC W/PLT COUNT & AUTO 2021-01-08 05:11:[address] [facility] COMPREHENSIVE METABOLIC 2021-01-08 05:11:00 Jose Douglas [facility] MAGNESIUM 2021-01-08 05:11:00 Jose Douglas [facility] UPPER ENDOSCOPY 2021-01-07 07:42:00 Kareem Miranda [facility] HEMOGLOBIN AND HEMATOCRIT 2021-01-07 05:35:00 Kareem Miranda [facility] HEMOGLOBIN AND HEMATOCRIT 2021-01-06 10:33:00 Kareem Miranda [facility] XR CHEST 1 VIEW PORTABLE 2021-01-06 10:24:[address] [facility] - / BEDSIDE [facility] 2D ECHO W/ DOPPLER 2021-01-05 12:19:25 Jose Douglas [facility] (CW/PW/COLOR) [facility] CBC W/PLT COUNT & AUTO 2021-01-05 06:09:[address] [facility] COMPREHENSIVE METABOLIC 2021-01-05 06:09:00 Jose Douglas [facility] MAGNESIUM 2021-01-05 06:09:00 Jose Douglas [facility] AMYLASE 2021-01-05 06:09:00 Jose Douglas [facility] LIPASE 2021-01-05 06:09:00 Jose Douglas [facility] OCCULT BLOOD, STOOL 2021-01-05 04:21:00 Jose Douglas [facility] TROPONIN I 2021-01-05 00:26:00 Jose Douglas [facility] CBC W/PLT COUNT & AUTO 2021-01-04 20:45:[address] [facility] TROPONIN I 2021-01-04 19:08:00 Jose Douglas [facility] COMPREHENSIVE METABOLIC 2021-01-04 19:08:00 Jose Douglas I [facility] MAGNESIUM 2021-01-04 19:08:00 Jose Douglas [facility] XR CHEST 1 VIEW PORTABLE 2021-01-04 18:55:[address] [facility] Plan of Care Planned Activity Planned Date Details Comments Source Future Scheduled 2021-06-[address] [facility] - Test 00:00:00 (Season Ended) [code = Medic ri Center INFLUENZA VACCINE (Season Ended)] Future Scheduled 2020-10-[address] [facility] - Test 00:00:00 (12+) [code = Medical Center DEPRESSION SCREENING (12+)] Future Scheduled 2018-10-[address] [facility] - Test 00:00:00 WELLNESS (YEAR 2 or Medical Center FIRST YEAR if no IPPE) [code = MEDICARE ANNUAL WELLNESS (YEAR 2 or FIRST YEAR if no IPPE)] Future Scheduled 1999 PNEUMOCOCCAL 65+ YRS [facility] - Test 00:00:00 (1 of 1 - Medical Center [id number] PCV13) [code = PNEUMOCOCCAL 65+ YRS (1 of 1 - [id number] PCV13)] Future Scheduled 1984 SHINGLES VACCINES (1 [facility] - Test 00:00:00 of 2) [code = SHINGLES Medic ri Center VACCINES (1 of 2)] Future Scheduled 1953 [facility]AP[facility]TDAP/[facility]IN[facility] (1 - Tdap) [code = Medical C enter DTAP/TDAP/TD VACCINES (1 - Tdap)] Encounters Start End Encounter Admission Attending Care Care Encounter Source Date/Time Date/Time Type Type Clinicians Facility Department ID 2021-01-04 2021-01-08 [facility] Misael [facility] [id number] 13:24:00 14:14:00 Encounter [facility] 2021-01-07 2021-01-07 Surgery Ruth, [facility] [id number] 08:00:00 08:46:00 [facility] 2021-01-07 2021-01-07 Anesthesia Yonathan, [facility] [id number] 08:23:00 08:40:00 Event Aravind [facility] Results Test Description Test Time Test Comments Results Result Comments Source Sputum Culture + Gram Stain 2021-01-10 08:50:00 Test Item Value Reference Range Interpretation Comme nts Result (test code = 6463-4) 4+ Normal respiratory michelle present Gram Stain Result (test code = 1123) 1+ [facility] [id number] 08:50:00 Test Item Value Reference Range Interpretation Comments CULTURE (BEAKER) 4+ Normal respiratory (test code = 1095) michelle present GRAM STAIN RESULT 2+ White blood cells (BEAKER) (test code = seen 1123) GRAM STAIN RESULT <1+ epithelial cells (BEAKER) (test code = 53708) GRAM STAIN RESULT 1+ Mixed michelle (BEAKER) (test code = 57523) RAD, CHEST, 1 VIEW, NON [id number] 08:11:00Reason for exam:- >PNEUMONIAShould this be performed at the bedside?->Yes [facility] 1935 Sex: FFINAL REPORT INDICATION: PNEUMONIA COMPARISON: 01/06/2021 TECHNIQUE: Single frontal view of the chest. FINDINGS: Lungs and pleura: Clear lungs. No effusion.Heart and mediastinum: Normal heart size. Unremarkable mediastinal contours.Osseous structures: No acute abnormality.Other: None. IMPRESSION: No acute intrathoracic abnormality. Signed: Kayce Canales Verified Date/Time: 01/08/2021 08:11:07 Reading Location: [facility] Reading Room XR chest 1 view portable / [id number] 08:11:00 Interface, External Ris In - 01/08/2021 8:13 AM CDTFINAL REPORT INDICATION: PNEUMONIA COMPARISON: 01/06/2021 TECHNIQUE: Single frontal view of the chest. FINDINGS: Lungs and pleura: Clear lungs. No effusion.Heart and mediastinum: Normal heart size. Unremarkable mediastinal contours.Osseous structures: No acute abnormality.Other: None. IMPRESSION: No acute intrathoracic abnormality. Signed: Kayce Canales Verified Date/Time: 01/08/2021 08:11:07 Reading Location: [facility] 06:09:00 Test Item Value Reference Range Interpretation Comments Magnesium (test code = 1.9 mg/dL 1.5-3 62615-7) EUSEBIA (test code = EUSEBIA) Hand Bookbinder ID - [id number] ID - [id number] ID - [id number] ID - [id number] Lab Interpretation (test Normal code = 38133-9) [facility] 06:09:00 Test Item Value Reference Range Interpretation Comments MAGNESIUM (BEAKER) (test code = 1.9 mg/dL 1.5-3.0 627) Hand Bookbinder ID - [id number] ID - [id number] ID - [id number] ID - [id number] Comprehensive metabolic [id number] 06:08:00 Test Item Value Reference Range Interpretation Comments Protein, Total (test 6.2 See_Comment [Autom ated code = 2885-2) message] The system which generated this result transmit mis reference range : 6.0 - 8.5 gm/dL . The reference range was not u sed to interpret th is result as normal/abnormal . Albumin (test code = 3.5 g/dL 3.5-5 45659-7) Alkaline Phosphatase 63 U/L 30-115 (test code = 6768-6) Total Bilirubin (test 0.3 mg/dL 0.1-1.2 code = 1974-2) Sodium (test code = 142 meq/L 370-894 3306-2) Potassium (test code 3.9 meq/L 3.6-5.5 = 2823-3) Chloride (test code = 108 meq/L 98-106 H 2075-0) CO2 (test code = 23 meq/L 20-29 2027-9) BUN (test code = 12 mg/dL - 3094-0) Creatinine (test code 0.79 mg/dL 0.5-1.2 = 2160-0) Glucose (test code = 128 mg/dL 70-110 H 2345-7) Calcium (test code = 8.8 mg/dL 8.5-10.5 30921-5) AST (test code = 15 U/L 5-40 1920-8) ALT (test code = 11 U/L 5-50 1742-6) EGFR (test code = 69 mL/min/1.73 [place] [address]-4) NOT ACCURATE CREATININE CLEARANCE IN PREDICTING GLOMERULAR FILTRATION RATE . ESTIMATED GFR I S NOT APPLICABLE FOR DIALYSIS PATIEN TS. EUSEBIA (test code = EUSEBIA) Hand Bookbinder ID - [id number] ID - [id number] ID - [id number] ID - [id number] ID - [id number] ID - [id number] ID - [id number] ID - [id number] ID - [id number] ID - [id number] ID - ARYO84Fupbquxu ID - [id number] ID - [id number] ID - [id number] ID - [id number] ID - [id number] Lab Interpretation Abnormal (test code = 56994-7) [facility]PRE[facility] METABOL[facility] [id number] 06:08:00 Test Item Value Reference Range Interpretation Comments TOTAL PROTEIN 6.2 gm/dL 6.0-8.5 (BEAKER) (test code = 770) ALBUMIN (BEAKER) 3.5 g/dL 3.5-5.0 (test code = 1145) ALKALINE PHOSPHATASE 63 U/L 30-115 (BEAKER) (test code = 346) BILIRUBIN TOTAL 0.3 mg/dL 0.1-1.2 (BEAKER) (test code = 377) SODIUM (BEAKER) (test 142 meq/L 135-148 code = 381) POTASSIUM (BEAKER) 3.9 meq/L 3.6-5.5 (test code = 379) CHLORIDE (BEAKER) 108 meq/L 98-106 H (test code = 382) CO2 (BEAKER) (test 23 meq/L 20-29 code = 355) BLOOD UREA NITROGEN 12 mg/dL 10-26 (BEAKER) (test code = 354) CREATININE (BEAKER) 0.79 mg/dL 0.50-1.20 (test code = 358) GLUCOSE RANDOM 128 mg/dL 70-110 H (BEAKER) (test code = 652) CALCIUM (BEAKER) 8.8 mg/dL 8.5-10.5 (test code = 697) AST (SGOT) (BEAKER) 15 U/L 5-40 (test code = 353) ALT (SGPT) (BEAKER) 11 U/L 5-50 (test code = 347) EGFR (BEAKER) (test 69 mL/min/1.73 ESTIMA MIS GFR IS code = 1092) sq m NOT ACCURATE CREATININE CLEARANCE IN PREDICTING GLOMERULAR FILTRATION RATE . ESTIMATED GFR I S NOT APPLICABLE FOR DIALYSIS PATIEN TS. Hand Bookbinder ID - [id number] ID - [id number] ID - [id number] ID - [id number] ID - [id number] ID - [id number] ID - [id number] ID - [id number] ID - [id number] ID - EZHC31Jwsgduig ID - GBSK84Faprqfnv ID - [id number] ID - [id number] ID - WSYH23Yzcfpesv ID - [id number] ID - [id number] with platelet count + automated [id number] 05:43:00 Test Item Value Reference Range Interpretation Comments WBC (test code = 6690-2) 8.3 See_Comment [A utomated message] The system [employer] generated this result transmitted ref erence range: 4.0 - 10 .0 K/L. The refe rence range was not u sed to interpret this result as normal/abnor mal. RBC (test code = 789-8) 3.06 See_Comment L [Au tomated message] The system [employer] generated this result transmitted ref erence range: 4.00 - 5 .00 M/L. The refe rence range was not u sed to interpret this result as normal/abnor mal. MCHC (test code = 786-4) 31.7 See_Comment L [A utomated message] The system [employer] generated this result transmitted ref erence range: 32.0 - 3 6.0 GM/DL. The refe rence range was not u sed to interpret this result as normal/abnor mal. Hematocrit (test code = 28.1 % 36-46 L 4544-3) MCV (test code = 787-2) 91.8 fL 82-99 MCH (test code = 785-6) 29.1 pg 27-33 RDW (test code = 788-0) 14.6 % 12-15 Platelets (test code = 248 See_Comment [Aut omated message] 857-3) The system [employer] generated this result transmitted ref erence range: 150 - 43 0 K/CU MM. The referen ce range was not u sed to interpret this result as normal/abnor mal. MPV (test code = 11.6 fL 6-11.5 H 47633-1) nRBC (test code = 413) 0 See_Comment [Aut omated message] The system [employer] generated this result transmitted ref erence range: 0 - 0 /1 00 WBC. The refere nce range was not u sed to interpret this result as normal/abnor mal. % Neutros (test code = 58 % 429) % Lymphs (test code = 30 % 430) % Monos (test code = 7 % 431) % Eos (test code = 432) 4 % % Baso (test code = 437) 1 % # Neutros (test code = 4.82 See_Comment [Aut omated message] 670) The system [employer] generated this result transmitted ref erence range: 1.80 - 8 .00 K/L. The refe rence range was not u sed to interpret this result as normal/abnor mal. # Lymphs (test code = 2.46 See_Comment [Auto mated message] 414) The system [employer] generated this result transmitted ref erence range: 1.48 - 4 .50 K/L. The refe rence range was not u sed to interpret this result as normal/abnor mal. # Monos (test code = 0.56 See_Comment [Autom ated message] 415) The system [employer] generated this result transmitted ref erence range: 0.00 - 1 .30 K/L. The refe rence range was not u sed to interpret this result as normal/abnor mal. # Eos (test code = 416) 0.35 See_Comment [Au tomated message] The system [employer] generated this result transmitted ref erence range: 0.00 - 0 .50 K/L. The refe rence range was not u sed to interpret this result as normal/abnor mal. # Baso (test code = 417) 0.04 See_Comment [A utomated message] The system [employer] generated this result transmitted ref erence range: 0.00 - 0 .20 K/L. The refe rence range was not u sed to interpret this result as normal/abnor mal. Immature 1 % 0-0 H Granulocytes-Relative (test code = 2801) Lab Interpretation (test Abnormal code = 27958-4) [facility] W/PLT COUNT & AUTO [id number] 05:43:00 Test Item Value Reference Range Interpretation Comments WHITE BLOOD CELL COUNT (BEAKER) 8.3 K/ L 4.0-10.0 (test code = 775) RED BLOOD CELL COUNT (BEAKER) 3.06 M/ L 4.00-5.00 L (test code = 761) HEMOGLOBIN (BEAKER) (test code = 8.9 GM/DL 12.0-15.5 L 410) HEMATOCRIT (BEAKER) (test code = 28.1 % 36.0-46.0 L 411) MEAN CORPUSCULAR VOLUME (BEAKER) 91.8 fL 82.0-99.0 (test code = 753) MEAN CORPUSCULAR HEMOGLOBIN 29.1 pg 27.0-33.0 (BEAKER) (test code = 751) MEAN CORPUSCULAR HEMOGLOBIN CONC 31.7 GM/DL 32.0-36.0 L (BEAKER) (test code = 752) RED CELL DISTRIBUTION WIDTH 14.6 % 12.0-15.0 (BEAKER) (test code = 412) PLATELET COUNT (BEAKER) (test 248 K/CU MM 150-430 code = 756) MEAN PLATELET VOLUME (BEAKER) 11.6 fL 6.0-11.5 H (test code = 754) NUCLEATED RED BLOOD CELLS 0 /100 WBC 0-0 (BEAKER) (test code = 413) NEUTROPHILS RELATIVE PERCENT 58 % (BEAKER) (test code = 429) LYMPHOCYTES RELATIVE PERCENT 30 % (BEAKER) (test code = 430) MONOCYTES RELATIVE PERCENT 7 % (BEAKER) (test code = 431) EOSINOPHILS RELATIVE PERCENT 4 % (BEAKER) (test code = 432) BASOPHILS RELATIVE PERCENT 1 % (BEAKER) (test code = 437) NEUTROPHILS ABSOLUTE COUNT 4.82 K/ L 1.80-8.00 (BEAKER) (test code = 670) LYMPHOCYTES ABSOLUTE COUNT 2.46 K/ L 1.48-4.50 (BEAKER) (test code = 414) MONOCYTES ABSOLUTE COUNT (BEAKER) 0.56 K/ L 0.00-1.30 (test code = 415) EOSINOPHILS ABSOLUTE COUNT 0.35 K/ L 0.00-0.50 (BEAKER) (test code = 416) BASOPHILS ABSOLUTE COUNT (BEAKER) 0.04 K/ L 0.00-0.20 (test code = 417) IMMATURE GRANULOCYTES-RELATIVE 1 % 0-0 H PERCENT (BEAKER) (test code = 2801) Hemoglobin and [id number] 06:18:00 Test Item Value Reference Range Interpretation Comments Hemoglobin (test code = 7.9 See_Comment L [Au tomated message] 786-4) The system [employer] generated this result transmitted ref erence range: 12.0 - 1 5.5 GM/DL. The refe rence range was not u sed to interpret this result as normal/abnor mal. Hematocrit (test code = 25.4 % 36-46 L 4544-3) Lab Interpretation (test Abnormal code = 73374-8) [facility]MO[facility] AND [id number] 06:18:00 Test Item Value Reference Range Interpretation Comments HEMOGLOBIN (BEAKER) (test code = 7.9 GM/DL 12.0-15.5 L 410) HEMATOCRIT (BEAKER) (test code = 25.4 % 36.0-46.0 L 411) HEMOGLOBIN AND [id number] 10:38:00 Test Item Value Reference Range Interpretation Comments HEMOGLOBIN (BEAKER) (test code = 8.7 GM/DL 12.0-15.5 L 410) HEMATOCRIT (BEAKER) (test code = 28.0 % 36.0-46.0 L 411) RAD, CHEST, 1 VIEW, NON [id number] 10:31:00Reason for exam:- >dyspneaShould this be performed at the bedside?->Yes [facility] 1935 Sex: FFINAL REPORT Chest, 1 view. History: Dyspnea. Comparison: 01/04/2021. Discussion: The trachea is midline. There are stable mild elevation the right hemidiaphragm. There isno evidence for new large focal consolidation, pneumothorax, or significant pleural effusion. The cardiomediastinal silhouette a stable in appearance. No acute osseous abnormalities identified. The soft tissues are unremarkable. IMPRESSION: No acute cardiopulmonary process or significant interval change identified from 01/04/2021. 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 MD Tammi. Physician Procedure Type of Study TTE procedure:2DECHO W DOPPLER(CW/PW/COLOR) (Routine) Indications:Dyspnea/SOB.Clinical HistoryHTN, APPENDITICS, GALLBLADDER SURGERYHeight: 65 inches Weight: 77.11 kg (170 lbs) BSA: 1.85 m^2 BMI: 28.29 kg/m^2HR: 65 bpm BP: 128/72 mmHg Summary Mild concentric LVH with normal internal dimensions. Normal LV systolic function with an estimated LVEF of 60-64%. Grade 1 diastolic dysfunction. Normal RV size and systolic function. No evidence of pulmonary hypertension; estimated PA systolic pressure of 27 mm Hg, assuming an RA pressure of 3 mm Hg. No pericardial effusion. No previous study to compare from. Signature ------- Findings Left Ventricle Mild concentric LV hypertrophy. Left ventricular size is normal. All segments contract normally. Normal overall left ventricular systolic function. The visual ejection fraction was estimated 60-64 %. Grade 1 diastolic dysfunction (impaired relaxation and low-normal LA pressure). Left Atrium The left atrium is not well visualized. The left atrium appears normal. Right Ventricle The right ventricular chamber size and systolic function are within normallimits. Right Atrium RA size is normal. Aortic Valve Normal AoV structure. There is no aortic stenosis. There is no aortic regurgitation. Mitral Valve Normal MV structure. Trace mitral regurgitation.Tricuspid Valve TV structure is normal. Mild tricuspid regurgitation. Estimated peak systolic PA pressure is 25-30 mmHg (normal range) . Pulmonic Valve No evidence of pulmonary regurgitation. Aorta Aortic root size (SInus of Valsalva diameter) is normal . Pericardium No pericardial effusion is visualized. IVC/SVC/PA/PV/Pleural The inferior vena cava size is normal . Chambers/Structures Left Atrium LA Dimension: 3.68 cm LA Area: 16.44 cm^2 LA Volume: 42 ml LA Vol. Index: 23 ml/m^2 Left Ventricle LVIDd: 4.44 cm LVEDV:89.81 ml LVIDs: 3.39 cm LVESV:47.2 ml LV Septum Diastolic: 1.38 cm LV Septum Systolic: 1.71 cm LV Length: 7.76 cm LV PW Diastolic: 1.28 cm LV FS: 23.7 % LV PW Systolic: 1.5 cm LVOT Diameter: 1.86 cm LVEF: 47.4 % Right Atrium RA Systolic Pressure: 10 mmHg Right Ventricle RV Systolic Pressure: 29.44 mmHg Aorta Ao Root S of Kaitlin.: 3 cm Doppler/Quantitative Measurements Mitral Valve MV Peak E-Wave: 0.81 m/s MV Peak A-Wave: 0.82 m/s P1/2t: 56.4 msec E/A Ratio: 0.99 Peak Velocity: 0.87 m/s Peak Gradient: 2.64 mmHg Mean Velocity: 0.38 m/s Deceleration Time: 214.8 msec Mean Gradient: 0.84 mmHg Area (continuity): 2.26 cm^2 MV Area (PHT): 3.9 cm^2 MV VTI: 27.9 cm MV Neil. Peak: Tissue Doppler E' Septal Velocity: 0.07 m/s E' Lateral Velocity: 0.08 m/s Aortic Valve Peak Velocity: 1.76 m/s Mean Velocity: 1.14 m/s Peak Gradient: 12.37 mmHg Mean Gradient: 6.16 mmHg AV Area (continuity): 1.56 cm^2 AV VTI: 40.41 cm Cusp Separation: 1.08 cm AV DVI: 0.58 LVOT PeakVelocity: 0.88 m/s Peak Gradient: 3.13 mmHg Mean Velocity: 0.59 m/s Mean Gradient: 1.63 mmHg LVOT Diameter: 1.86 cm LVOT VTI: 23.25 cm LVOT Area: 2.72 cm^2 LVOT SV:63.14 ml LVOT CO: 4.1 l/min LVOT CI: 2.22 l/min/m^2 Tricuspid ValveEstimated RVSP: 29.49 mmHg Estimated RAP: 10 mmHg TR Velocity: 2.2 m/s TR Gradient: 19.44 mmHg Pulmonic Valve Peak Velocity: 0.89 m/s Peak Gradient: 3.2 mmHg Estimated PASP: 29.44 mmHgLoma Linda University Children's HospitalCOMPREHENSIVE METABOLIC [id number] 06:44:00 Test Item Value Reference Range Interpretation Comments TOTAL PROTEIN 5.2 gm/dL 6.0-8.5 L (BEAKER) (test code = 770) ALBUMIN (BEAKER) 3.0 g/dL 3.5-5.0 L (test code = 1145) ALKALINE PHOSPHATASE 39 U/L 30-115 (BEAKER) (test code = 346) BILIRUBIN TOTAL 0.3 mg/dL 0.1-1.2 (BEAKER) (test code = 377) SODIUM (BEAKER) (test 141 meq/L 135-148 code = 381) POTASSIUM (BEAKER) 4.1 meq/L 3.6-5.5 (test code = 379) CHLORIDE (BEAKER) 110 meq/L 98-106 H (test code = 382) CO2 (BEAKER) (test 25 meq/L 20-29 code = 355) BLOOD UREA NITROGEN 44 mg/dL 10-26 H (BEAKER) (test code = 354) CREATININE (BEAKER) 0.86 mg/dL 0.50-1.20 (test code = 358) GLUCOSE RANDOM 111 mg/dL 70-110 H (BEAKER) (test code = 652) CALCIUM (BEAKER) 7.9 mg/dL 8.5-10.5 L (test code = 697) AST (SGOT) (BEAKER) 14 U/L 5-40 (test code = 353) ALT (SGPT) (BEAKER) 9 U/L 5-50 (test code = 347) EGFR (BEAKER) (test 63 mL/min/1.73 ESTIMA MIS GFR IS code = 1092) sq m NOT ACCURATE CREATININE CLEARANCE IN PREDICTING GLOMERULAR FILTRATION RATE . ESTIMATED GFR I S NOT APPLICABLE FOR DIALYSIS PATIEN TS. Hand Bookbinder ID - [id number] ID - [id number] ID - [id number] ID - [id number] ID - [id number] ID - [id number] ID - [id number] ID - [id number] ID - [id number] ID - [id number] ID - [id number] ID - [id number] ID - [id number] ID - [id number] ID - [id number] ID - [id number] 2021-01-05 06:36:00 Test Item Value Reference Range Interpretation Comments Lipase (test code = 32 U/L 6-51 3040-3) EUSEBIA (test code = EUSEBIA) Hand Bookbinder ID - [id number] Lab Interpretation (test Normal code = 40762-3) [facility] HospitalLIPASE2021-03-12 06:36:00 Test Item Value Reference Range Interpretation Comments LIPASE (BEAKER) (test code = 749) 32 U/L 6-51 Hand Bookbinder ID - [id number] 06:34:00 Test Item Value Reference Range Interpretation Comments MAGNESIUM (BEAKER) (test code = 2.1 mg/dL 1.5-3.0 627) Hand Bookbinder ID - [id number] 06:27:00 Test Item Value Reference Range Interpretation Comments Amylase (test code = 106 U/L 30-110 1798-8) EUSEBIA (test code = EUSEBIA) Hand Bookbinder ID - [id number] ID - [id number] ID - [id number] ID - [id number] Lab Interpretation (test Normal code = 99518-0) [facility] HospitalAMYLASE2021-[facility]-12 06:27:00 Test Item Value Reference Range Interpretation Comments AMYLASE (BEAKER) (test code = 349) 106 U/L 30-110 Hand Bookbinder ID - [id number] ID - [id number] ID - [id number] ID - [id number] W/PLT COUNT & AUTO [id number] 06:25:00 Test Item Value Reference Range Interpretation Comments WHITE BLOOD CELL COUNT (BEAKER) 11.2 K/ L 4.0-10.0 H (test code = 775) RED BLOOD CELL COUNT (BEAKER) 2.61 M/ L 4.00-5.00 L (test code = 761) HEMOGLOBIN (BEAKER) (test code = 7.7 GM/DL 12.0-15.5 L 410) HEMATOCRIT (BEAKER) (test code = 23.9 % 36.0-46.0 L 411) MEAN CORPUSCULAR VOLUME (BEAKER) 91.6 fL 82.0-99.0 (test code = 753) MEAN CORPUSCULAR HEMOGLOBIN 29.5 pg 27.0-33.0 (BEAKER) (test code = 751) MEAN CORPUSCULAR HEMOGLOBIN CONC 32.2 GM/DL 32.0-36.0 (BEAKER) (test code = 752) RED CELL DISTRIBUTION WIDTH 14.7 % 12.0-15.0 (BEAKER) (test code = 412) PLATELET COUNT (BEAKER) (test 177 K/CU MM 150-430 code = 756) MEAN PLATELET VOLUME (BEAKER) 11.6 fL 6.0-11.5 H (test code = 754) NUCLEATED RED BLOOD CELLS 0 /100 WBC 0-0 (BEAKER) (test code = 413) NEUTROPHILS RELATIVE PERCENT 71 % (BEAKER) (test code = 429) LYMPHOCYTES RELATIVE PERCENT 20 % (BEAKER) (test code = 430) MONOCYTES RELATIVE PERCENT 8 % (BEAKER) (test code = 431) EOSINOPHILS RELATIVE PERCENT 1 % (BEAKER) (test code = 432) BASOPHILS RELATIVE PERCENT 0 % (BEAKER) (test code = 437) NEUTROPHILS ABSOLUTE COUNT 7.93 K/ L 1.80-8.00 (BEAKER) (test code = 670) LYMPHOCYTES ABSOLUTE COUNT 2.25 K/ L 1.48-4.50 (BEAKER) (test code = 414) MONOCYTES ABSOLUTE COUNT (BEAKER) 0.85 K/ L 0.00-1.30 (test code = 415) EOSINOPHILS ABSOLUTE COUNT 0.09 K/ L 0.00-0.50 (BEAKER) (test code = 416) BASOPHILS ABSOLUTE COUNT (BEAKER) 0.03 K/ L 0.00-0.20 (test code = 417) IMMATURE GRANULOCYTES-RELATIVE 1 % 0-0 H PERCENT (BEAKER) (test code = 2801) Occult blood, [id number] 05:08:00 Test Item Value Reference Range Interpretation Comments Occult blood (test code = 2335-8) Positive Negative A Lab Interpretation (test code = Abnormal 18261-7) [facility] HospitalOCCULT BLOOD, [id number] 05:08:00 Test Item Value Reference Range Interpretation Comments FECAL OCCULT BLOOD (BEAKER) (test Positive Negative A code = 618) Troponin [id number] 00:53:00 Test Item Value Reference Range Interpretation Comments Troponin I (test code = 0.18 ng/mL 0-0.15 H 76668-5) EUSEBIA (test code = EUSEBIA) Troponin I (TnI) levels must be interpreted in the context of the presenting symptoms and the clinical findings. Elevated TnI levels indicate myocardial damage, but are not specific for ischemic heart disease. Elevated TnI levels are seen in patients with other cardiac conditions (including myocarditis and congestive heart failure), and slight TnI elevations occur in patients with other conditions, including sepsis, renal failure, acidosis, acute neurological disease, and persistent tachyarrhythmia.Opera tor ID - [id number] Lab Interpretation (test Abnormal code = 81986-9) [facility] HospitalNARCISO [id number] 00:53:00 Test Item Value Reference Range Interpretation Comments TROPONIN I (BEAKER) (test code = 0.18 ng/mL 0.00-0.15 H 397) Troponin I (TnI) levels must be interpreted in the context of the presenting symptoms and the clinical findings. Elevated TnI levels indicate myocardial damage, but are not specific for ischemic heart disease. Elevated TnI levels are seen in patients with other cardiac conditions (including myocarditis and congestive heart failure), and slight TnI elevations occur in patients with other conditions, including sepsis, renal failure, acidosis, acute neurological disease, and persistent tachyarrhythmia.Hand Bookbinder ID - [id number] W/PLT COUNT & AUTO [id number] 20:56:00 Test Item Value Reference Range Interpretation Comments WHITE BLOOD CELL COUNT (BEAKER) 16.2 K/ L 4.0-10.0 H (test code = 775) RED BLOOD CELL COUNT (BEAKER) 2.76 M/ L 4.00-5.00 L (test code = 761) HEMOGLOBIN (BEAKER) (test code = 8.1 GM/DL 12.0-15.5 L 410) HEMATOCRIT (BEAKER) (test code = 24.9 % 36.0-46.0 L 411) MEAN CORPUSCULAR VOLUME (BEAKER) 90.2 fL 82.0-99.0 (test code = 753) MEAN CORPUSCULAR HEMOGLOBIN 29.3 pg 27.0-33.0 (BEAKER) (test code = 751) MEAN CORPUSCULAR HEMOGLOBIN CONC 32.5 GM/DL 32.0-36.0 (BEAKER) (test code = 752) RED CELL DISTRIBUTION WIDTH 14.7 % 12.0-15.0 (BEAKER) (test code = 412) PLATELET COUNT (BEAKER) (test 221 K/CU MM 150-430 code = 756) MEAN PLATELET VOLUME (BEAKER) 11.7 fL 6.0-11.5 H (test code = 754) NUCLEATED RED BLOOD CELLS 0 /100 WBC 0-0 (BEAKER) (test code = 413) NEUTROPHILS RELATIVE PERCENT 79 % (BEAKER) (test code = 429) LYMPHOCYTES RELATIVE PERCENT 13 % (BEAKER) (test code = 430) MONOCYTES RELATIVE PERCENT 8 % (BEAKER) (test code = 431) EOSINOPHILS RELATIVE PERCENT 0 % (BEAKER) (test code = 432) BASOPHILS RELATIVE PERCENT 0 % (BEAKER) (test code = 437) NEUTROPHILS ABSOLUTE COUNT 12.77 K/ L 1.80-8.00 H (BEAKER) (test code = 670) LYMPHOCYTES ABSOLUTE COUNT 2.08 K/ L 1.48-4.50 (BEAKER) (test code = 414) MONOCYTES ABSOLUTE COUNT (BEAKER) 1.25 K/ L 0.00-1.30 (test code = 415) EOSINOPHILS ABSOLUTE COUNT 0.02 K/ L 0.00-0.50 (BEAKER) (test code = 416) BASOPHILS ABSOLUTE COUNT (BEAKER) 0.03 K/ L 0.00-0.20 (test code = 417) IMMATURE GRANULOCYTES-RELATIVE 1 % 0-0 H PERCENT (BEAKER) (test code = 2801) RAD, CHEST, 1 VIEW, NON [id number] 19:56:00Reason for exam:- >PNEUMONIAShould this be performed at the bedside?->Yes [facility] : 1935 Sex: FFINAL REPORT AP view of the chest dated 01/04/2021 CLINICAL INFORMATION: PNEUMONIA Comment: Heart is normal in size. Pulmonary vasculature is unremarkable. Lungs are clear. No pulmonary infiltrate or pleural effusion is present. Impression: No active cardiopulmonary disease. Signed: Carlos Parish [facility]ITALeport Verified Date/Time: 01/04/2021 19:56:43 Reading Location: [facility] B1 [id number] Consult Reading Room TROPONIN [id number] 19:40:00 Test Item Value Reference Range Interpretation Comments TROPONIN I (BEAKER) (test code = 0.14 ng/mL 0.00-0.15 397) Troponin I (TnI) levels must be interpreted in the context of the presenting symptoms and the clinical findings. Elevated TnI levels indicate myocardial damage, but are not specific for ischemic heart disease. Elevated TnI levels are seen in patients with other cardiac conditions (including myocarditis and congestive heart failure), and slight TnI elevations occur in patients with other conditions, including sepsis, renal failure, acidosis, acute neurological disease, and persistent tachyarrhythmia.Hand Bookbinder ID - [id number] METABOLIC [id number] 19:37:00 Test Item Value Reference Range Interpretation Comments TOTAL PROTEIN 6.1 gm/dL 6.0-8.5 Specimen sligh tly (BEAKER) (test code = hemoly zed 770) ALBUMIN (BEAKER) 3.2 g/dL 3.5-5.0 L Specimen sl ightly (test code = 1145) hemolyzed ALKALINE PHOSPHATASE 45 U/L 30-115 (BEAKER) (test code = 346) BILIRUBIN TOTAL 0.4 mg/dL 0.1-1.2 Specimen sli ghtly (BEAKER) (test code = hemoly zed 377) SODIUM (BEAKER) (test 139 meq/L 135-148 code = 381) POTASSIUM (BEAKER) 4.7 meq/L 3.6-5.5 Specimen slightly (test code = 379) hemolyzed CHLORIDE (BEAKER) 109 meq/L 98-106 H (test code = 382) CO2 (BEAKER) (test 18 meq/L 20-29 L code = 355) BLOOD UREA NITROGEN 48 mg/dL 10-26 H (BEAKER) (test code = 354) CREATININE (BEAKER) 1.03 mg/dL 0.50-1.20 Specimen slightly (test code = 358) hemolyzed GLUCOSE RANDOM 123 mg/dL 70-110 H (BEAKER) (test code = 652) CALCIUM (BEAKER) 8.2 mg/dL 8.5-10.5 L (test code = 697) AST (SGOT) (BEAKER) 17 U/L 5-40 Specimen slightly (test code = 353) hemolyzed ALT (SGPT) (BEAKER) 12 U/L 5-50 Specimen slightly (test code = 347) hemolyzed EGFR (BEAKER) (test 51 mL/min/1.73 ESTIMA MIS GFR IS code = 1092) sq m NOT ACCURATE CREATININE CLEARANCE IN PREDICTING GLOMERULAR FILTRATION RATE . ESTIMATED GFR I S NOT APPLICABLE FOR DIALYSIS PATIEN TS. Hand Bookbinder ID - [id number] ID - [id number] ID - [id number] ID - [id number] ID - [id number] ID - [id number] ID - [id number] ID - [id number] ID - [id number] ID - [id number] ID - [id number] ID - [id number] ID - [id number] ID - [id number] ID - [id number] ID - [id number] 19:33:00 Test Item Value Reference Range Interpretation Comments MAGNESIUM (BEAKER) 1.9 mg/dL 1.5-3.0 Specimen slightly (test code = 627) hemolyzed Hand Bookbinder ID - [id number] ID - [id number] ID - [id number] ID - [id number] 03:27:00 Test Item Value Reference Range Interpretation Comments RPR SCREEN (BEAKER) (test code = Nonreactive Nonreactive 420) T4, [id number] 07:55:00 Test Item Value Reference Range Interpretation Comments FREE T4 (BEAKER) (test code = 655) 1.00 ng/dL 0.70-1.48 TSH/FREE T4 IF [id number] 06:54:00 Test Item Value Reference Range Interpretation Comments THYROID STIMULATING HORMONE 6.27 uIU/mL 0.35-4.94 H (BEAKER) (test code = 772) VITAMIN B12 AND [id number] 06:31:00 Test Item Value Reference Range Interpretation Comments VITAMIN B12 (BEAKER) (test code = 210 pg/mL 213-816 L 774) FOLATE (BEAKER) (test code = 362) 13.9 ng/mL >=7.0 BASIC METABOLIC [id number] 05:58:00 Test Item Value Reference Range Interpretation Comments SODIUM (BEAKER) 139 meq/L 136-145 (test code = 381) POTASSIUM (BEAKER) 3.7 meq/L 3.5-5.1 (test code = 379) CHLORIDE (BEAKER) 107 meq/L 98-107 (test code = 382) CO2 (BEAKER) (test 22 meq/L 22-29 code = 355) BLOOD UREA NITROGEN 21 mg/dL 7-21 (BEAKER) (test code = 354) CREATININE (BEAKER) 0.77 mg/dL 0.57-1.25 (test code = 358) GLUCOSE RANDOM 147 mg/dL 70-105 H (BEAKER) (test code = 652) CALCIUM (BEAKER) 9.9 mg/dL 8.4-10.2 (test code = 697) EGFR (BEAKER) (test 72 mL/min/1.73 ESTIMA MIS GFR IS code = 1092) sq m NOT ACCURATE CREATININE CLEARANCE IN PREDICTING GLOMERULAR FILTRATION RATE . ESTIMATED GFR I S NOT APPLICABLE FOR DIALYSIS PATIEN TS. FastingLIPID [id number] 05:58:00 Test Item Value Reference Range Interpretation Comments TRIGLYCERIDES (BEAKER) (test code = 152 mg/dL 540) CHOLESTEROL (BEAKER) (test code = 224 mg/dL 631) HDL CHOLESTEROL (BEAKER) (test code 36 mg/dL = 976) LDL CHOLESTEROL CALCULATED (BEAKER) 158 mg/dL (test code = 633) Triglyceride Reference Range: Low Risk <150 Borderline 150-199 High Risk 200-499 Very High Risk >=500Cholesterol Reference Range: Low Risk <200 Borderline 200-239 High Risk >240HDL Cholesterol Reference Range: Low Risk >=60 High Risk <40LDL Cholesterol Reference Range: Optimal <100 Near Optimal 100-129 Borderline 130-159 High 160-189 Very High >=190 FastingCBC W/PLT COUNT & AUTO [id number] 05:31:00 Test Item Value Reference Range Interpretation Comments WHITE BLOOD CELL COUNT (BEAKER) 8.4 K/ L 3.5-10.5 (test code = 775) RED BLOOD CELL COUNT (BEAKER) 4.64 M/ L 3.93-5.22 (test code = 761) HEMOGLOBIN (BEAKER) (test code = 13.5 GM/DL 11.2-15.7 410) HEMATOCRIT (BEAKER) (test code = 41.3 % 34.1-44.9 411) MEAN CORPUSCULAR VOLUME (BEAKER) 89.0 fL 79.4-94.8 (test code = 753) MEAN CORPUSCULAR HEMOGLOBIN 29.1 pg 25.6-32.2 (BEAKER) (test code = 751) MEAN CORPUSCULAR HEMOGLOBIN CONC 32.7 GM/DL 32.2-35.5 (BEAKER) (test code = 752) RED CELL DISTRIBUTION WIDTH 13.7 % 11.7-14.4 (BEAKER) (test code = 412) PLATELET COUNT (BEAKER) (test 222 K/CU MM 150-450 code = 756) MEAN PLATELET VOLUME (BEAKER) 10.9 fL 9.4-12.3 (test code = 754) NUCLEATED RED BLOOD CELLS 0 /100 WBC 0-0 (BEAKER) (test code = 413) NEUTROPHILS RELATIVE PERCENT 72 % (BEAKER) (test code = 429) LYMPHOCYTES RELATIVE PERCENT 17 % (BEAKER) (test code = 430) MONOCYTES RELATIVE PERCENT 8 % (BEAKER) (test code = 431) EOSINOPHILS RELATIVE PERCENT 3 % (BEAKER) (test code = 432) BASOPHILS RELATIVE PERCENT 1 % (BEAKER) (test code = 437) NEUTROPHILS ABSOLUTE COUNT 6.00 K/ L 1.56-6.13 (BEAKER) (test code = 670) LYMPHOCYTES ABSOLUTE COUNT 1.40 K/ L 1.18-3.74 (BEAKER) (test code = 414) MONOCYTES ABSOLUTE COUNT (BEAKER) 0.64 K/ L 0.24-0.36 H (test code = 415) EOSINOPHILS ABSOLUTE COUNT 0.23 K/ L 0.04-0.36 (BEAKER) (test code = 416) BASOPHILS ABSOLUTE COUNT (BEAKER) 0.04 K/ L 0.01-0.08 (test code = 417) IMMATURE GRANULOCYTES-RELATIVE 1 % 0-1 PERCENT (BEAKER) (test code = 2801) MR, BRAIN, WITHOUT [id number] 23:12:00Reason for exam:->StrokeWhat is the patient's sedation requirement?->No SedationIs the patient claustrophobic?->NoFINAL REPORT Exam: MRI brain without contrast. Comparison: None. Clinical indication: Stroke. Right side weakness Technique: Multiplanar multi sequential MR imaging of the brainwas performed without the administration of intravenous contrast. Findings: There are rrgl-pp-wzpripqw white matter microvascular ischemic changes. There are [...] junction is normal.Impression:Small acute left frontoparietal infarcts. Obhc-fb-fgtjlqwm white matter microvascular ischemic changes. No acute intracranial hemorrhage or mass effect. Findings discussed with Dr Gutierrez 1112p 08/19/18. Signed: Anne Ignacio MDReport Verified Date/Time: 08/19/2018 23:12:35 Reading Location: [address] Body Reading Room 11:12 PMMR, MRA, NECK, WITHOUT IV [id number] 22:59:00FINAL REPORT MRA head and neck without contrast. CLINICAL HISTORY: Stroke. Right-sided weakness. COMPARISON: None. TECHNIQUE: Two- and three-dimensional arco-ya-lrmnjl MRA images of the intra- and extracranial carotid and vertebral arterial circulations were obtained, from which maximal intensity projection 3-D reconstructions were created. FINDINGS: MRA neck: There is mild stenosis of the proximal right cervical internal carotid artery (approximately 34%). There is mild short segment stenosis of the proximal left cervical carotid artery (approximately 37%). There is no vessel occlusion in the extracranial carotid or vertebral arterial circulations. Flow is antegrade in both vertebral arteries. MRA [place]: There is irregularity of the intracranial vasculature in k eeping with atherosclerosis. 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 There is no vessel occlusion, flow-limitingstenosis, or aneurysm in the intracranial carotid or vertebrobasilar arterial circulations. IMPRESSION: MRA neck: Mild stenosis of the bilateral cervical internal ICAs. No hemodynamically significant stenosis by NASCET criteria.MRA head: No vessel occlusion or flow-limiting stenosis. Signed: Anne Ignacio Verified Date/Time: 08/19/2018 22:59:51 Reading Location: [address] Body Reading Room MR, MRA, BRAIN, WITHOUT CONTRAST 2018-08-19 22:59:00Reason for exam:->StrokeWhat is the patient's sedation requirement?->No SedationIs the patientclaustrophobic?->NoFINAL REPORT MRA head and neck without contrast. CLINICAL HISTORY: Stroke. Right-sided weakness. COMPARISON: None. TECHNIQUE: Two- and three- dimensional jtjj-ed-rabncb MRA images of the intra- and extracranial carotid and vertebral arterial circulations were obtained, from which maximal intensity projection 3-D reconstructions were created. FINDINGS: MRA neck: There is mild stenosis of the proximal right cervical internal carotid artery (approximately 34%). There is mild short segment stenosis of the proximal left cervical carotid artery (approximately 37%). There is no vessel occlusion in the extracranial carotid or vertebral arterial circulations. Flow is antegrade in both vertebral arteries. MRA [place]: There is irregularity of the intracranial vasculature in keeping with atherosclerosis. 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 There is no vessel occlusion, flow-limitingstenosis, or aneurysm in the intracranial carotid or vertebrobasilar arterial circulations. IMPRESSION: MRA neck: Mild stenosis of the bilateral cervical internal ICAs. No hemodynamically significant stenosis by NASCET criteria.MRA head: No vessel occlusion or flow-limiting stenosis. Signed: Anne Ignacioeport Verified Date/Time: 08/19/2018 22:59:51 Reading Location: [address] Body Reading Room HEMOGLOBIN A1C 2018-08-19 15:02:00 Test Item Value Reference Range Interpretation Comments HEMOGLOBIN A1C (BEAKER) (test code = 5.7 % 4.3-6.1 368) BASIC METABOLIC [id number] 12:44:00 Test Item Value Reference Range Interpretation Comments SODIUM (BEAKER) 141 meq/L 136-145 (test code = 381) POTASSIUM (BEAKER) 4.5 meq/L 3.5-5.1 (test code = 379) CHLORIDE (BEAKER) 106 meq/L 98-107 (test code = 382) CO2 (BEAKER) (test 24 meq/L 22-29 code = 355) BLOOD UREA NITROGEN 15 mg/dL 7-21 (BEAKER) (test code = 354) CREATININE (BEAKER) 0.79 mg/dL 0.57-1.25 (test code = 358) GLUCOSE RANDOM 99 mg/dL 70-105 (BEAKER) (test code = 652) CALCIUM (BEAKER) 9.7 mg/dL 8.4-10.2 (test code = 697) EGFR (BEAKER) (test 70 mL/min/1.73 ESTIMA MIS GFR IS code = 1092) sq m NOT ACCURATE CREATININE CLEARANCE IN PREDICTING GLOMERULAR FILTRATION RATE . ESTIMATED GFR I S NOT APPLICABLE FOR DIALYSIS PATIEN TS. C-REACTIVE [id number] 12:44:00 Test Item Value Reference Range Interpretation Comments C-REACTIVE PROTEIN (BEAKER) (test 0.23 mg/dL 0.00-0.50 code = 676) CBC W/PLT COUNT & AUTO [id number] 12:24:00 Test Item Value Reference Range Interpretation Comments WHITE BLOOD CELL COUNT (BEAKER) 8.1 K/ L 3.5-10.5 (test code = 775) RED BLOOD CELL COUNT (BEAKER) 5.04 M/ L 3.93-5.22 (test code = 761) HEMOGLOBIN (BEAKER) (test code = 14.7 GM/DL 11.2-15.7 410) HEMATOCRIT (BEAKER) (test code = 46.0 % 34.1-44.9 H 411) MEAN CORPUSCULAR VOLUME (BEAKER) 91.3 fL 79.4-94.8 (test code = 753) MEAN CORPUSCULAR HEMOGLOBIN 29.2 pg 25.6-32.2 (BEAKER) (test code = 751) MEAN CORPUSCULAR HEMOGLOBIN CONC 32.0 GM/DL 32.2-35.5 L (BEAKER) (test code = 752) RED CELL DISTRIBUTION WIDTH 13.7 % 11.7-14.4 (BEAKER) (test code = 412) PLATELET COUNT (BEAKER) (test 234 K/CU MM 150-450 code = 756) MEAN PLATELET VOLUME (BEAKER) 11.3 fL 9.4-12.3 (test code = 754) NUCLEATED RED BLOOD CELLS 0 /100 WBC 0-0 (BEAKER) (test code = 413) NEUTROPHILS RELATIVE PERCENT 67 % (BEAKER) (test code = 429) LYMPHOCYTES RELATIVE PERCENT 19 % (BEAKER) (test code = 430) MONOCYTES RELATIVE PERCENT 8 % (BEAKER) (test code = 431) EOSINOPHILS RELATIVE PERCENT 5 % (BEAKER) (test code = 432) BASOPHILS RELATIVE PERCENT 1 % (BEAKER) (test code = 437) NEUTROPHILS ABSOLUTE COUNT 5.42 K/ L 1.56-6.13 (BEAKER) (test code = 670) LYMPHOCYTES ABSOLUTE COUNT 1.52 K/ L 1.18-3.74 (BEAKER) (test code = 414) MONOCYTES ABSOLUTE COUNT (BEAKER) 0.66 K/ L 0.24-0.36 H (test code = 415) EOSINOPHILS ABSOLUTE COUNT 0.39 K/ L 0.04-0.36 H (BEAKER) (test code = 416) BASOPHILS ABSOLUTE COUNT (BEAKER) 0.05 K/ L 0.01-0.08 (test code = 417) IMMATURE GRANULOCYTES-RELATIVE 1 % 0-1 PERCENT (BEAKER) (test code = 7819)
[2021-06-24] MEDS ORDERED: MORPHINE 4 MG/ML SYR ONE ×2 (13:30→15:31)
[2021-06-24] MEDS ORDERED: ONDANSETRON 4 MG/2 ML VIAL ONE (13:30)
--- NOTE | 2021-06-24 13:50 | RAD REPORT ---
EXAM DESCRIPTION: RAD - Shoulder Left 2 View - 06/24/2021 1:36 pm CLINICAL HISTORY: Left shoulder pain status post fall FINDINGS: Fracture involves the lateral aspect of the humeral head extending into the the humeral ne ck as well as several centimeters inferiorly involving the shaft. Moderate displacement of fracture f ragments. No dislocation
--- NOTE | 2021-06-24 13:52 | RAD REPORT ---
EXAM DESCRIPTION: RAD - Humerus Left - 06/24/2021 1:36 pm CLINICAL HISTORY: Left arm pain status post fall FINDINGS: Fracture involves the lateral aspect of the humeral head extending into the the humeral neck as well as several centimeters inferiorly involving the shaft. Moderate displacement of fracture fragments. No dislocation There is limited evaluation of the distal aspect of the humerus.
--- NOTE | 2021-06-24 15:24 | EDPHYS ---
Physician Documentation [facility] Name: Gaby Burnett Age: 85 yrs Sex: Female : 1935 Arrival Date: 06/24/2021 Time: 12:21 Bed 28 Private MD: ED Physician Leidy Spear HPI: 06/24 15:18 This 85 yrs old Female presents to ER via Wheelchair with complaints of Fall ma2 Injury. 15:18 Details of fall: The patient fell from an upright position, walking, tripped . Onset: ma2 The symptoms/episode began/occurred suddenly, 1 hour(s) ago. Associated injuries: The patient sustained left arm. Severity of symptoms: in the emergency department the symptoms are unchanged. The patient has not experienced similar symptoms in the past. Historical: - Allergies: 12:59 PENICILLINS; ss - PMHx: 12:59 Hypertension; Hypothyroidism; ss - Immunization history:: Client reports having NOT received the Covid vaccine. - Social history:: Smoking status: Patient denies any tobacco usage or history of. - Family history:: not pertinent. - Hospitalizations: : No recent hospitalization is reported. ROS: 15:18 Constitutional: Negative for fever, chills, and weight loss. ma2 15:18 All other systems are negative. Exam: 15:18 Constitutional: This is a well developed, well nourished patient who is awake, alert, ma2 and in no acute distress. Head/Face: Normocephalic, atraumatic. Eyes: Pupils equal round and reactive to light, extra-ocular motions intact. Lids and lashes normal. Conjunctiva and sclera are non-icteric and not injected. Cornea within normal limits. Periorbital areas with no swelling, redness, or edema. ENT: Nares patent. No nasal discharge, no septal abnormalities noted. Tympanic membranes are normal and external auditory canals are clear. Oropharynx with no redness, swelling, or masses, exudates, or evidence of obstruction, uvula midline. Mucous membranes moist. Neck: Trachea midline, no thyromegaly or masses palpated, and no cervical lymphadenopathy. Supple, full range of motion without nuchal rigidity, or vertebral point tenderness. No Meningismus. Chest/axilla: Normal chest wall appearance and motion. Nontender with no deformity. No lesions are appreciated. Cardiovascular: Regular rate and rhythm with a normal S1 and S2. No gallops, murmurs, or rubs. Normal PMI, no JVD. No pulse deficits. Respiratory: Lungs have equal breath sounds bilaterally, clear to auscultation and percussion. No rales, rhonchi or wheezes noted. No increased work of breathing, no retractions or nasal flaring. Abdomen/GI: Soft, non-tender, with normal bowel sounds. No distension or tympany. No guarding or rebound. No evidence of tenderness throughout. Back: No spinal tenderness. No costovertebral tenderness. Full range of motion. Skin: Warm, dry with normal turgor. Normal color with no rashes, no lesions, and no evidence of cellulitis. MS/ Extremity: left shoulder pain and tenderness, skin is wnl, no skin cuts, sensation is intact all over, left elbow and hand movement is wnl with strength 5/5 Pulses equal, no cyanosis. Neurovascular intact. Full, normal range of motion. Neuro: Awake and alert, GCS 15, oriented to person, place, time, and situation. Cranial nerves II-XII grossly intact. Motor strength 5/5 in all extremities. Sensory grossly intact. Cerebellar exam normal. Normal gait. Vital Signs: 12:56 Resp 22; Temp 97.4(TE); Pulse Ox 100% on R/A; Weight 72.57 kg; Height 5 ft. 5 in. ss (165.10 cm); Pain 10/10; 13:12 BP 133 / 59; Pulse 65; Resp 20; Pulse Ox 98% on R/A; Pain 10/10; ch5 13:58 BP 140 / 69; Pulse 60; Resp 18; Pulse Ox 94% on R/A; Pain 5/10; ld1 15:23 BP 127 / 66; Pulse 64; Resp 18; Pulse Ox 100% on R/A; ld1 12:56 Body Mass Index 26.63 (72.57 kg, 165.10 cm) ss Ivette Coma Score: 12:56 Eye Response: spontaneous(4). Verbal Response: oriented(5). Motor Response: obeys commands(6). Total: 15. Trauma Score (Adult): 12:56 Eye Response: spontaneous(1); Verbal Response: oriented(1); Motor Response: obeys ss commands(2); Systolic BP: > 89 mm Hg(4); Respiratory Rate: 10 to 29 per min(4); [place] Score: 15; Trauma Score: 12 MDM: 13:02 Patient medically screened. mn2 15:18 Differential diagnosis: abrasion, fracture, sprain, strain. Data reviewed: vital signs, ma2 nurses notes. Counseling: I had a detailed discussion with the patient and/or guardian regarding: the historical points, exam findings, and any diagnostic results supporting the discharge/admit diagnosis, the presence of at least one elevated blood pressure reading (>120/80) during this emergency department visit, the need for outpatient follow up. Response to treatment: the patient's symptoms have markedly improved after treatment. ED course: discussed with dr. abel advised for a sling and send to his clinic tomorrow . 06/24 13:03 Order name: Shoulder Left (2 View) XRAY; Complete Time: 14:12 [facility] 06/24 13:06 Order name: Humerus Left XRAY; Complete Time: 14:12 [facility] 06/24 13:03 Order name: Sling; Complete Time: 13:12 [facility] Administered Medications: 13:15 Drug: morphine 4 mg Route: IVP; Site: right forearm; ch5 15:25 Follow up: Response: Pain is decreased ch5 13:15 Drug: Zofran (Ondansetron) 4 mg Route: IVP; Site: right forearm; ch5 15:25 Follow up: Response: No change in condition ch5 15:24 Drug: morphine 4 mg Route: IVP; Site: right antecubital; ch5 15:25 Follow up: Response: Pain is decreased ch5 15:26 Follow up: Response: Pain is decreased ch5 Disposition Summary: 06/24/21 15:23 Discharge Ordered Location: Home ma2 Condition: Stable ma2 Diagnosis - Fracture of upper end of humerus ma2 Followup: ma2 - With: Private Physician - When: Tomorrow - Reason: Continuance of care Followup: ma2 - With: Prakash Abel MD - When: Tomorrow - Reason: Continuance of care Discharge Instructions: - Discharge Summary Sheet ma2 - Humerus Fracture Treated With Immobilization, [id number] ma2 Forms: - Medication Reconciliation Form ma2 - Thank You Letter ma2 - Antibiotic Education ma2 - Prescription Opioid Use ma2 Prescriptions: - Zofran 4 mg Oral Tablet - take 1 tablet by ORAL route every 12 hours As needed; 20 tablet; Refills: 0, ma2 Product Selection Permitted - Diclofenac Sodium 75 mg Oral Tablet Sustained Release - take 1 tablet by ORAL route 2 times per day; 30 tablet; Refills: 0, Product ma2 Selection Permitted Signatures: Dispatcher [employer] Cathie Melgoza RN RN ss Leidy Spear MD MD mn2 Anastasia Nelson RN RN 1 Vinod Gan RN RN ch5
--- NOTE | 2021-06-24 15:24 | ER ---
Nurse's Notes [facility] Name: Gaby Burnett Age: 85 yrs Sex: Female : 1935 Arrival Date: 06/24/2021 Time: 12:21 Bed 28 Private MD: Diagnosis: Fracture of upper end of humerus Presentation: 06/24 12:56 Chief complaint: Patient states: fell from standing at [employer] 30 minutes ago. Pt c/o ss severe pain to L shoulder. Care prior to arrival: None. Mechanism of Injury: Fall from standing position. Trauma event details: Injury occurred in the [facility], Injury occurred: in a public building. Injury occurred: June 24, 2021. 12:56 Method Of Arrival: Wheelchair ss 12:56 Acuity: RYANNE 2 ss 12:59 Coronavirus screen: Client denies travel out of the [place] in the last 14 days. Ebola ss Screen: Patient denies exposure to infectious person. Patient denies travel to an Ebola-affected area in the 21 days before illness onset. Initial Sepsis Screen: Does the patient meet any 2 criteria? No. Patient's initial sepsis screen is negative. Does the patient have a suspected source of infection? No. Patient's initial sepsis screen is negative. Risk Assessment: Do you want to hurt yourself or someone else? Patient reports no desire to harm self or others. Onset of symptoms was June 24, 2021. Trauma Activation: Alert Physician: ED Physician; Name: ; Notified At: ; Arrived At: Physician: General Surgeon; Name: ; Notified At: ; Arrived At: Physician: Radiology; Name: ; Notified At: ; Arrived At: Physician: Respiratory; Name: ; Notified At: ; Arrived At: Physician: Lab; Name: ; Notified At: ; Arrived At: Historical: - Allergies: 12:59 PENICILLINS; ss - PMHx: 12:59 Hypertension; Hypothyroidism; ss - Immunization history:: Client reports having NOT received the Covid vaccine. - Social history:: Smoking status: Patient denies any tobacco usage or history of. - Family history:: not pertinent. - Hospitalizations: : No recent hospitalization is reported. Screenin:56 Abuse screen: Denies threats or abuse. Denies injuries from another. Tuberculosis ss screening: Never had TB. 13:12 Nutritional screening: No deficits noted. ch5 Primary Survey: 12:56 NO uncontrolled hemorrhage observed. A: The patient is alert. Airway: patent, No ss supplemental oxygen in use on arrival. Breathing/Chest: Respiratory pattern: regular, Respiratory effort: spontaneous, unlabored. Circulation: Pulses: palpable right radial artery and left radial artery. Disability Alert. Exposure/Environment: There is no evidence of uncontrolled external bleeding. Assessment: 13:12 Reassessment: Patient states symptoms have not improved. General: Appears distressed. ch5 Pain: Left shoulder pain Pain at worst was 10 out of 10 on a pain scale. Aggravated by repositioning. Musculoskeletal: Range of motion: limited in left shoulder Swelling. 13:58 Reassessment: Patient appears in no apparent distress at this time. No changes from ld1 previously documented assessment. Patient and/or family updated on plan of care and expected duration. Pain level reassessed. Patient is alert, oriented x 3, equal unlabored respirations, skin warm/dry/pink. 15:23 Reassessment: Patient appears in no apparent distress at this time. No changes from ld1 previously documented assessment. Patient and/or family updated on plan of care and expected duration. Pain level reassessed. Patient is alert, oriented x 3, equal unlabored respirations, skin warm/dry/pink. Vital Signs: 12:56 Resp 22; Temp 97.4(TE); Pulse Ox 100% on R/A; Weight 72.57 kg; Height 5 ft. 5 in. ss (165.10 cm); Pain 10/10; 13:12 BP 133 / 59; Pulse 65; Resp 20; Pulse Ox 98% on R/A; Pain 10/10; ch5 13:58 BP 140 / 69; Pulse 60; Resp 18; Pulse Ox 94% on R/A; Pain 5/10; ld1 15:23 BP 127 / 66; Pulse 64; Resp 18; Pulse Ox 100% on R/A; ld1 12:56 Body Mass Index 26.63 (72.57 kg, 165.10 cm) ss Ivette Coma Score: 12:56 Eye Response: spontaneous(4). Verbal Response: oriented(5). Motor Response: obeys commands(6). Total: 15. Trauma Score (Adult): 12:56 Eye Response: spontaneous(1); Verbal Response: oriented(1); Motor Response: obeys ss commands(2); Systolic BP: > 89 mm Hg(4); Respiratory Rate: 10 to 29 per min(4); [place] Score: 15; Trauma Score: 12 ED Course: 12:21 Patient arrived in ED. ds1 12:56 Triage completed. ss 12:56 Patient has correct armband on for positive identification. ss 12:56 Patient maintains SpO2 saturation greater than 95% on room air. ss 12:59 Arm band placed on right wrist. ss 13:02 Leidy Spear MD is Attending Physician. ma2 13:11 Vinod Gan RN is Primary Nurse. ch5 13:17 Bed in low position. Call light in reach. Side rails up X2. ch5 13:17 Inserted saline lock: 22 gauge in right forearm, using aseptic technique. ch5 13:35 Shoulder Left (2 View) XRAY In Process Unspecified. EDMS 13:35 Humerus Left XRAY In Process Unspecified. EDMS 15:23 Prakash Cardozo MD is Referral Physician. ma2 15:39 No provider procedures requiring assistance completed. IV discontinued, intact, ld1 bleeding controlled, No redness/swelling at site. Administered Medications: 13:15 Drug: morphine 4 mg Route: IVP; Site: right forearm; ch5 15:25 Follow up: Response: Pain is decreased ch5 13:15 Drug: Zofran (Ondansetron) 4 mg Route: IVP; Site: right forearm; ch5 15:25 Follow up: Response: No change in condition ch5 15:24 Drug: morphine 4 mg Route: IVP; Site: right antecubital; ch5 15:25 Follow up: Response: Pain is decreased ch5 15:26 Follow up: Response: Pain is decreased ch5 Outcome: 15:23 Discharge ordered by . ma2 15:39 Discharged to home via wheelchair, with family. ld1 15:39 Condition: stable 15:39 Discharge instructions given to patient, family, Instructed on discharge instructions, follow up and referral plans. medication usage, Demonstrated understanding of instructions, follow-up care, medications, Prescriptions given X 2. 15:39 Patient left the ED. ld1 Signatures: Dispatcher [employer] EDOH Lola Pinto ds1 Cathie Tom RN RN Leidy Spear MD MD ma2 Anastasia Nelson, RN RN ld1 Vinod Gan RN RN ch5 Corrections: (The following items were deleted from the chart) 13:00 12:56 Acuity: RYANNE 3 ss ss
[2021-06-24 15:57] VITALS: TEMP 97.4
[2021-06-24 16:01] VITALS: BP 127/66; O2SAT 100
== END 2021-06-24 15:39 | disposition home or self-care (01) ==
LOC: ER 12:02
DX: S42.202A Unspecified fracture of upper end of left humerus, initial encounter for closed fracture (principal); W01.0XXA Fall on same level from slipping, tripping and stumbling without subsequent striking against object, initial encounter; Y93.01 Activity, walking, marching and hiking; Z88.0 Allergy status to penicillin; I10 Essential (primary) hypertension
CPT/HCPCS: 73060; 73030; 99284; J2405; G0390